=== PATIENT | female | born 1960 | race Caucasian/White ===

== ENCOUNTER 2021-06-09 11:54 | Emergency (ER) | payer MEDICAID, OTHER ==
[~2021-06-09] VITALS: Ht 160 cm; Wt 60.3 kg
[2021-06-09 13:43] LABS: Basophils # (auto) 0 10 ^3/uL (0-0.2); Basophils % (auto) 0.3 % (0.0-2.0); Eosinophils # (auto) 0.1 10 ^3/uL (0-0.8); Eosinophils % (auto) 0.8 % (0.0-7.0); Hematocrit 40.4 % (36.0-46.0); Hemoglobin 13.9 g/dL (12.2-16.2); Lymphocytes # (auto) 1.6 10 ^3/uL (0.4-5.4); Lymphocytes % (auto) 15.6 % (10.0-50.0); Mean Corpuscular Hemoglobin 30.9 pg (28.0-32.0); Mean Corpuscular Hgb Conc. 34.3 g/dL (32.0-36.0); Mean Corpuscular Volume 90.2 fL (80.0-100.0); Monocytes # (auto) 0.7 10 ^3/uL (0-1.3); Monocytes % (auto) 7.2 % (0.0-12.0); Neutrophils # (auto) 7.6 10 ^3/uL (1.6-8.6); Neutrophils % (auto) 76.1 % (37.0-80.0); Red Blood Cells 4.48 10^6/uL (4.0-5.20); Red Cell Distribution Width 13.7 % (11.8-14.3); White Blood Cell 9.9 10^3/uL (4.4-10.8)
[2021-06-09 13:55] LABS: Albumin 4.2 g/dL (3.4-5.0); BUN/Creatinine Ratio 17.1; Calcium 9.2 mg/dL (8.5-10.1)
[2021-06-09 13:58] LABS: Bilirubin, Total 0.4 mg/dL (0.2-1.0); Total Protein 7.9 g/dL (6.4-8.2)
[2021-06-09 15:49] LABS: Urine Bacteria NONE SEEN /hpf (None Seen); Urine Blood TRACE /uL (Negative); Urine Mucus FEW (None Seen); Urine Specific Gravity 1.024 (1.001-1.035); Urine WBC 14 /hpf (0 - 5)
[2021-06-09 16:00] VITALS: BP 128/75
== END 2021-06-09 17:07 | disposition home or self-care (01) ==
LOC: ER 11:54
DX: N39.0 Urinary tract infection, site not specified (principal); R05 Cough; E11.9 Type 2 diabetes mellitus without complications; Z88.0 Allergy status to penicillin; Z20.822 Contact with and (suspected) exposure to COVID-19
CPT/HCPCS: 36415; 71045; 80053; 81001; 85025; 87426

== ENCOUNTER 2021-11-02 09:07 | Emergency (ER) | payer MEDICAID ==
[~2021-11-02] VITALS: Ht 160 cm; Wt 57.6 kg
[2021-11-02 10:35] VITALS: BP 139/73
== END 2021-11-02 11:13 | disposition home or self-care (01) ==
LOC: ER 09:07
DX: J02.9 Acute pharyngitis, unspecified (principal); R05.9 Cough, unspecified; I10 Essential (primary) hypertension; E11.9 Type 2 diabetes mellitus without complications; Z20.822 Contact with and (suspected) exposure to COVID-19
CPT/HCPCS: 36415; 71046; 87426

== ENCOUNTER 2025-03-11 09:41 | Inpatient (IN) | payer OTHER, MEDICAID ==
[~2025-03-11] VITALS: Ht 160 cm; Wt 62.8 kg
--- NOTE | 2025-03-11 10:41 | DVHINCON2 ---
Date of service: Mar 11, 2025 Allergies: Coded Allergies: Penicillins (Verified Allergy, Unknown, 06/09/21) Vital Signs Vital Signs Date Time Temp Pulse Resp B/P (MAP) Pulse Ox O2 Delivery O2 Flow Rate FiO2 03/11/25 10:38 98.7 77 13 156/83 (107) 94 98.7 03/11/25 10:33 Room Air* 0 21 Labs/Diagnostic Data Labs Test 03/11/25 10:08 Range/Units POC Glucose 145 H 70-106 mg/dl Plan/Recommendation [facility] Note # Demographics Consult Type: Acute Stroke Level 1 (0-4.5 hrs) Patient Location: Emergency Room First Name: tito Last Name: reece Date of : 1960 Age: 64 Gender: Female Facility: [facility] Time of Initial Page (): 03/11/2025 10:20 Time of Return Call (): 03/11/2025 10:20 # HPI History: 64yo F had an episode of confusion while on [facility] phone. mild faciald oj noted on exam onset 1 hour ago # Scores Time of exam and NIHSS (): 03/11/2025 10:30 Level of Consciousness 1a: [0] = Alert; keenly responsive LOC Questions 1b: [0] = Answers both questions correctly LOC Commands 1c: [0] = Performs both tasks correctly Best Gaze 2: [0] = Normal Visual 3: [0] = No visual loss Facial Palsy 4: [0] = Normal symmetrical movements Motor Arm Left 5a: [0] = No drift Motor Arm Right 5b: [0] = No drift Motor Leg Left 6a: [0] = No drift Motor Leg Right 6b: [0] = No drift Limb Ataxia 7: [0] = Absent Sensory 8: [0] = Normal Best Language 9: [0] = No aphasia Dysarthria 10: [0] = Normal Extinction and Inattention 11: [0] = No abnormality NIHSS Total: 0 # Assessment Impression: confusion/amnestic episode # Plan Thrombolytic/Intervention: NOT IV Thrombolysis or IA Intervention candidate Thrombolytic Exclusion (< 3 hour window): - NIHSS = 0 - non-disabling deficit Intraarterial Exclusion: - clinical exam not consistent with presence of large vessel occlusion (LVO), can reconsider if LVO found on vascular imaging Imaging: (urgency: STAT): - CT Angiogram Head and CT Angiogram Neck AND call back with results if abnormal Other: - If patient has any neurological deterioration please call me back immediately - I have discussed my recommendations with the referring provider Additional Recommendations: Metabolic and infectious evaluation recommended. If no cause found then MRI brain and EEG would be reasonable for next step in evaluation # Logistics Attestation of consult completion: The patient is located at: [facility]. Facility staff participated in the visit. I performed this telemedicine visit from my offsite office utilizing interactive 2 way audio and visual telecommunication technology. Total time spent in telemedicine encounter: I spent 10 minutes reviewing clinical data and/or imaging, obtaining history, examining the patient, communicating with the onsite care team, and in preparation of this report. # Demographics First Name: tito Last Name: reece Facility: [facility] Plan discussed with: Patient JACOB LARIOS DO Mar 11, 2025 10:41
--- NOTE | 2025-03-11 10:45 | ECG ---
[facility] Test Date: 2025-03-11 Test Time: 10:36:42 Pat Name: MARTIN ROGERS Department: ER Room: 0209T Gender: F [employer]: GUERDA : 1960 Requested By: RADHA COVARRUBIAS Order Number: [id number] Reading MD: Evin Rivera Measurements Intervals [place] Rate: 66 P: 53 WI: 130 QRS: 28 QRSD: 102 T: 58 QT: 399 QTc: 418 Interpretive Statements Sinus rhythm Abnormal R-wave progression, early transition Electronically Signed On 03-13-2025 20:28:17 PDT by Evin Rivera Please click the below link to view image of tracing.
--- NOTE | 2025-03-11 10:47 | DVH ---
EXAM: CT STROKE CTH INDICATION: POSS STROKE TECHNIQUE: CT of the head without intravenous contrast. Radiation Dose : 1. Head: CT Dose: CTDI volume is 53.25 mGy. Dose-length product is 863.9 mGy*cm The dose indicators for CT are the volume Computed Tomography (CT) Dose Index (CTDIvol) and the Dose Length Product (DLP), and are measured in units of mGy and mGy-cm, respectively. These indicators are not patient dose, but values generated from the CT scanner acquisition factors. The report includes radiation exposure data for exposures received during this examination. COMPARISON: None FINDINGS: There is no evidence of acute intracranial hemorrhage, extra-axial collection, mass effect, midline s hift, herniation or hydrocephalus. The ventricles, sulci and cisterns are age appropriate. The riley-white differentiation is intact. The visualized paranasal sinuses and mastoid air cells are clear. The surrounding soft tissues and osseous structures are unremarkable. IMPRESSION: No acute intracranial abnormality. Radiation optimization: All CT scans at this facility use at least one of these dose optimization veda hniques: automated exposure control mA and/or kV adjustment per patient size (includes targeted exam s where dose is matched to clinical indication) or iterative reconstruction.
[2025-03-11 11:18] LABS: Basophils # (auto) 0 10 ^3/uL (0-0.2); Basophils % (auto) 0.6 % (0.0-2.0); Eosinophils # (auto) 0.2 10 ^3/uL (0-0.8); Hematocrit 42.4 % (36.0-46.0); Hemoglobin 14.6 g/dL (12.2-16.2); Lymphocytes # (auto) 1.9 10 ^3/uL (0.4-5.4); Lymphocytes % (auto) 22.6 % (10.0-50.0); Mean Corpuscular Hemoglobin 30.8 pg (28.0-32.0); Mean Corpuscular Hgb Conc. 34.3 g/dL (32.0-36.0); Mean Corpuscular Volume 89.7 fL (80.0-100.0); Monocytes # (auto) 0.6 10 ^3/uL (0-1.3); Monocytes % (auto) 6.8 % (0.0-12.0); Neutrophils # (auto) 5.7 10 ^3/uL (1.6-8.6); Platelet Count (auto) 249 10^3/uL (140-450); Red Blood Cells 4.73 10^6/uL (4.0-5.20); Red Cell Distribution Width 13.6 % (11.8-14.3); White Blood Cell 8.4 10^3/uL (4.4-10.8)
[2025-03-11 11:29] LABS: Chloride 105 mmol/L (98-107); Potassium 3.9 mmol/L (3.5-5.1); Sodium 139 mmol/L (136-145)
[2025-03-11 11:30] LABS: Anion Gap 10 (5-15); Carbon Dioxide 24 mmol/L (20-31)
[2025-03-11 11:33] LABS: Calcium 10.5 mg/dL (8.7-10.4)
[2025-03-11 11:37] LABS: Glucose 158 mg/dL (74-106)
--- NOTE | 2025-03-11 11:50 | ED.PDOC ---
HPI (NEURO) HPI Comments 64 year old female presents to the ED with chief complaint of confusion and facial droop. Patient reports that earlier this morning 30 minutes prior to arrival in the ED she had went into the backyard and into her son's RV, however, she soon after started to feel confused as to why she was there and forgot that her son had just called her at about 8:51am. Patient relays that she was confused that she didn't remember speaking to her son and she also had some mild left facial droop noted. Patient denies any chest pain, SOB, headache, numbness or weakness of extremities, and LOC. Chief Complaint: Confusion Time Seen by MD: 11:48 Primary Care Provider: LETTY Quinn Notes: Nurses Notes, Medications, Allergies Information Source: Patient Mode of Arrival: Ambulatory Severity: Moderate Headache Severity: None Timing: Hours Duration: Since onset Prehospital treatment: None Weakness Location: Facial Onset: At rest Circumstances: Spontaneous History of: None Associated Signs and Symptoms: Weakness, Other (Confusion) Past Medical History PAST MEDICAL HISTORY: DM, HTN Surgical History: Cholecystectomy Surgical History (Other): Rt shoulder surgery RENTAL MANAGER History: No Pertinent RENTAL MANAGER History Family History Family History: Reviewed,noncontributory to illness Social History Smoker: Non-Smoker Alcohol: Denies ETOH Use Drugs: Denies Drug Use Lives In: Home Constitutional: denies: chills, diaphoresis, fatigue, fever, malaise, sweats, weakness, others EENTM: denies: blurred vision, double vision, ear bleeding, ear discharge, ear drainage, ear pain, ear ringing, eye pain, eye redness, hearing loss, mouth pain , mouth swelling, nasal discharge, nose bleeding, nose congestion, nose pain, photophobia, tearing, throat pain, throat swelling, voice changes, others Respiratory: denies: cough, hemoptysis, orthopnea, SOB at rest, shortness of breath, SOB with excertion, stridor, wheezing, others Cardiovascular: reports: lightheadedness; denies: chest pain, dizzy spells, diaphoresis, Dyspnea on exertion, edema, irregular heart beat, left arm pain, palpitations, PND, syncope, others Gastrointestinal: denies: abdomen distended, abdominal pain, blood streaked bowels, constipated, diarrhea, dysphagia, difficulty swallowing, hematemesis, melena, nausea, poor appetite, poor fluid intake, rectal bleeding, rectal pain, vomiting, others Genitourinary: denies: abnormal vagina bleeding, burning, dyspareunia, dysuria, flank pain, frequency, hematuria, incontinence, pain, , vagina discharge, urgency, others Neurological: reports: others (Confusion, left facial droop); denies: dizziness, fainting, headache, left sided numbness, left sided weakness, numbness, paresthesia, pre-existing deficit, right sided numbness, right sided weakness, seizure, speech problems, tingling, tremors, weakness Musculoskeletal: denies: back pain, gout, joint pain, joint swelling, muscle pain, muscle stiffness, neck pain, others Integumetry: denies: bruises, change in color, change in hair/nails, dryness, laceration, lesions, lumps, rash, wounds, others Allergic/Immunocompromised: denies: Difficulty Healing, Frequent Infections, Hives, Itching, others Hematologic/Lymphatic: denies: anemia, blood clots, easy bleeding, easy bruising, swollen glands, others Endocrine: denies: excessive hunger, excessive sweating, excessive thirst, excessive urination, flushing, intolerance to cold, intolerance to heat, unexplained weight gain, unexplained weight loss, others Psychiatric: denies: anxiety, bipolar disorder, depression, hopeless, panic disorder, schizophrenia, sleepless, suicidal, others All Other Systems: Reviewed and Negative Physical Exam General Appearance: No Apparent Distress, Normal HEENT: Normal ENT Inspection, Pharynx Normal, TMs Normal Neck: Full Range of Motion, Non-Tender, Normal, Normal Inspection Respiratory: Chest Non-Tender, Lungs Clear, No Accessory Muscle Use, No Respiratory Distress, Normal Breath Sounds Cardiovascular: No Edema, No JVD, No Murmur, No Gallop, Normal Peripheral Pulses, Regular Rate/Rhythm Breast Exam: Deferred Gastrointestinal: No Organomegaly, Non Tender, No Pulsatile Mass, Normal Bowel Sounds, Soft Genitalia: Deferred Pelvic: Deferred Rectal: Deferred Extremities: No calf tenderness, Normal capillary refill, Normal inspection, Normal range of motion, Non-tender, No pedal edema Musculoskeletal : Apperance: Normal Neurologic: Other (Left sided facial droop. Appears slightly confused. 5/5 strength to bilateral upper and lower extremities. Steady gait.) Cerebellar Function: Normal Reflexes: Normal Skin: Dry, Normal Color, Warm Lymphatic: No Adenopathy Was a procedure done? Was a procedure done?: No Differential Diagnosis (SZ) CVA: Lu's Palsy, CVA, Electrolyte Imbalance, TIA X-Ray, Labs, Meds, VS Vital Signs Date Time Temp Pulse Resp B/P (MAP) Pulse Ox O2 Delivery O2 Flow Rate FiO2 03/11/25 12:10 69 03/11/25 10:38 98.7 77 13 156/83 (107) 94 98.7 03/11/25 10:36 66 03/11/25 10:33 Room Air* 0 21 03/11/25 10:18 97.0 70 17 178/97 (124) 97 97.0 Lab Test 03/11/25 11:51 03/11/25 10:56 03/11/25 10:08 Range/Units Urine Color Colorless Yellow Urine Clarity Clear Clear Urine pH 6.5 5.0-9.0 Urine Specific [place] 1.005 1.001-1.035 Urine Protein Negative Negative Urine Ketones Negative Negative Urine Blood Trace H Negative /uL Urine Nitrite Negative Negative Urine Bilirubin Negative Negative Urine Urobilinogen Normal Negative mg/dL Urine Leukocyte Esterase Negative Negative /uL Urine RBC 1 0 - 4 /hpf Urine Microscopic WBC < 1 0-5 /HPF Urine Squamous Epithelial Cells None seen <5 /hpf Urine Bacteria None seen None Seen /hpf Urine Glucose Normal Normal mg/dL Urine Opiates Screen Neg NEGATIVE Urine Fentanyl Screen Neg NEGATIVE Urine Barbiturates Screen Neg NEGATIVE Urine Phencyclidine Screen Neg NEGATIVE Urine Amphetamines Screen Neg NEGATIVE Urine Benzodiazepines Screen Neg NEGATIVE Urine Cocaine Screen Neg NEGATIVE Urine Cannabinoids Screen Neg NEGATIVE White Blood Count 8.4 4.4-10.8 10^3/uL Red Blood Count 4.73 4.0-5.20 10^6/uL Hemoglobin 14.6 12.2-16.2 g/dL Hematocrit 42.4 36.0-46.0 % Mean Corpuscular Volume 89.7 80.0-100.0 fL Mean Corpuscular Hemoglobin 30.8 28.0-32.0 pg Mean Corpuscular Hemoglobin Concent 34.3 32.0-36.0 g/dL Red Cell Distribution Width 13.6 11.8-14.3 % Platelet Count 249 140-450 10^3/uL Mean Platelet Volume 8.4 6.9-10.8 fL Neutrophils (%) (Auto) 68.0 37.0-80.0 % Lymphocytes (%) (Auto) 22.6 10.0-50.0 % Monocytes (%) (Auto) 6.8 0.0-12.0 % Eosinophils (%) (Auto) 2.0 0.0-7.0 % Basophils (%) (Auto) 0.6 0.0-2.0 % Neutrophils # (Auto) 5.7 1.6-8.6 10 ^3/uL Lymphocytes # (Auto) 1.9 0.4-5.4 10 ^3/uL Monocytes # (Auto) 0.6 0-1.3 10 ^3/uL Eosinophils # (Auto) 0.2 0-0.8 10 ^3/uL Basophils # (Auto) 0 0-0.2 10 ^3/uL Nucleated Red Blood Cells 0.0 % Sodium Level 139 136-145 mmol/L Potassium Level 3.9 3.5-5.1 mmol/L Chloride Level 105 98-107 mmol/L Carbon Dioxide Level 24 20-31 mmol/L Anion Gap 10 5-15 Blood Urea Nitrogen 24 H 9-23 mg/dL Creatinine 0.85 0.550-1.02 mg/dL Glomerular Filtration Rate Calc 76 >90 mL/min BUN/Creatinine Ratio 28.2 H 10.0-20.0 Serum Glucose 158 H 74-106 mg/dL Hemoglobin A1c 6.3 H <5.7 % A1C Calcium Level 10.5 H 8.7-10.4 mg/dL Troponin I High Sensitivity 81 *H </=34 ng/L Triglycerides Level 217 H < 150 mg/dL Cholesterol Level 181 < 200 mg/dL LDL Cholesterol 114 H < 100 mg/dL HDL Cholesterol 40 40-59 mg/dL Thyroid Stimulating Hormone (TSH) 1.74 0.55-4.78 uIU/mL POC Glucose 145 H 70-106 mg/dl CT Head CVA: FINDINGS: There is no evidence of acute intracranial hemorrhage, extra-axial collection, mass effect, midline shift, herniation or hydrocephalus. The ventricles, sulci and cisterns are age appropriate. The riley-white differentiation is intact. The visualized paranasal sinuses and mastoid air cells are clear. The surrounding soft tissues and osseous structures are unremarkable. IMPRESSION: No acute intracranial abnormality. Radiation optimization: All CT scans at this facility use at least one of these dose optimization techniques: automated exposure control mA and/or kV adjustment per patient size (includes targeted exams where dose is matched to clinical indication) or iterative reconstruction. 64-year-old female presents here for stroke-like symptoms. Patient states proximally 1 hour prior to arrival she was feeling okay and then had a conversation with her son which does not remember having. This was very unusual for the patient. Patient presented to the ED. She did have a left facial droop. No other symptoms noted and she did have some mild confusion. Given th is was within 3 hour time window a code stroke was alerted. I spoke to Dr. Royal the neurologist. At this time patient is not a candidate for tPA given her minor symptoms. I have given her aspirin in the ER. Blood work has been done including a CBC BMP troponin. All of which are largely unremarkable except for she does not have elevated troponin. EKG demonstrates nonspecific ST changes. Hospitalist team has been contacted for admission. Images Reviewed?: Images reviewed and evaluated by me Time of 1ST Reevaluation: 12:48 Reevaluation 1ST: Unchanged Patient Education/Counseling: Diagnosis, Treatment Family Education/Counseling: No Family Present Departure 1 Departure Time of Disposition: 13:30 Impression: Primary Impression: Stroke-like symptoms Additional Impression: NSTEMI (non-ST elevation myocardial infarction) Disposition: ADMITTED INPATIENT Condition: Stable Critical Care Note Critical Care Time?: Yes (60 min-critical care time only) Critical care comment: Time spent evaluating the patient. Nursing staff called me to evaluate the p atient immediately upon arrival to the ER. Time spent and speaking to neurologist, interpreting labs. Concern for immediate deterioration Stability Stability form required: No Heart Score Heart Score: Heart Score Response (Comments) Value History Slightly Suspicious 0 EKG Repolarization Disturb 1 Age >65 2 Risk Factors 1 or 2 risk factors 1 Troponin >3 x's Normal limit 2 Total 6 I personally scribed for RADHA COVARRUBIAS MD ([email or web address]) on 03/11/25 at 11:50. Electronically submitted by Alberto Adam ([email or web address]). I personally scribed for RADHA COVARRUBIAS MD ([email or web address]) on 03/11/25 at 11:56. Electronically submitted by Alberto Adam ([email or web address]). I personally scribed for RADAH COVARRUBIAS MD ([email or web address]) on 03/11/25 at 11:57. Electronically submitted by Alberto Adam ([email or web address]). I personally scribed for RADHA COVARRUBIAS MD ([email or web address]) on 03/11/25 at 13:40. Electronically submitted by Alberto Adam ([email or web address]). I personally scribed for RADHA COVARRUBIAS MD ([email or web address]) on 03/11/25 at 15:01. Electronically submitted by Alberto Adam ([email or web address]). RADHA COVARRUBIAS MD Mar 11, 2025 11:50
[2025-03-11 12:04] LABS: BUN/Creatinine Ratio 28.2 (10.0-20.0); Blood Urea Nitrogen 24 mg/dL (9-23)
[2025-03-11 12:17] LABS: Urine Bacteria None Seen /hpf (None Seen)
[2025-03-11 12:31] LABS: Urine Blood TRACE /uL (Negative); Urine Clarity Clear (Clear); Urine Color Colorless (Yellow); Urine Protein, UAD Negative (Negative); Urine Specific Gravity 1.005 (1.001-1.035); Urine Squamous Epithelial Cell None Seen /hpf (<5); Urine Urobilinogen Normal (Negative); Urine WBC < 1 /HPF (0-5); Urine pH 6.5 (5.0-9.0)
[2025-03-11] MEDS ORDERED: ONDANSETRON HCL 4 MG/2 ML VIAL IV PRN (12:45)
[2025-03-11] MEDS ORDERED: MORPHINE SULFATE 4 MG/ML SYR/VIAL IV PRN (12:45)
[2025-03-11] MEDS ORDERED: NITROGLYCERIN 0.4 MG SL TAB SL PRN ×2 (12:45)
[2025-03-11] MEDS ORDERED: MORPHINE SULFATE INJ 2 MG/ml SYRG IV PRN (12:45)
[2025-03-11] MEDS ORDERED: DEXTROSE (50%) 50ML SYRG IV PRN (12:45)
--- NOTE | 2025-03-11 12:51 | DVHHP2 ---
History of Present Illness Reason for Visit: Acute encephalopathy History of Present Illness Marilyn Mcmahan is a 64-year-old female with past medical history of hypertension, diabetes, cholecystectomy, and right shoulder surgery who presents to the ED with confusion, left facial droop, and chest pressure that started tod ay. Patient states that she was in the backyard changing out her dog's water bowl when her son and Cris and she reports that there was some confusion. Patient reports that she does not have hypertension however her readings have been significantly high. Patient states that her chest pressure feels as though it is heavy. She does not report any pain. Patient denies shortness of breath, fever, chills, lightheadedness, dizziness, abdominal pain with nausea, vomiting, diarrhea, recent travels, recent trauma or injury, recent sick contacts, or recent ingestion of spoiled food. Cardiovascular: HTN Endocrine: Diabetes Past Surgical History: Cholecystectomy, Other (Right shoulder surgery) Family History: Other (Dad with heart disease) Smoke: No ALCOHOL: none Drugs: None Lives: with Family Domestic Violence: Neg Review of Systems Constitutional: Yes: Other Cardiovascular: Other (Chest pressure) Neurological: Other (Left facial droop) Allergies: Coded Allergies: Penicillins (Verified Allergy, Unknown, 06/09/21) Exam Vital Signs Vital Signs Date Time Temp Pulse Resp B/P (MAP) Pulse Ox O2 Delivery O2 Flow Rate FiO2 03/11/25 10:38 98.7 77 13 156/83 (107) 94 98.7 03/11/25 10:33 Room Air* 0 21 General Appearance: Alert, Oriented X3, Cooperative, No acute distress HEENT: Atraumatic, PERRLA, EOMI, Mucous membr. moist/pink Respiratory: Clear to auscultation, Normal air movement Cardiovascular: Regular rate, Normal S1, Normal S2, No murmurs Abdominal: Normal bowel sounds, Soft, No tenderness, No hepatospenomegaly, No masses Extremities: No clubbing, No cyanosis, No edema, Normal pulses Skin: No significant lesion Neuro: Normal speech, Strength at 5/5 X4 ext, Normal tone, Sensation intact Psych/Mental Status: Mental status NL, Mood NL Labs/Xrays Labs Test 03/11/25 11:51 03/11/25 10:56 03/11/25 10:08 Range/Units Urine Color Colorless Yellow Urine Clarity Clear Clear Urine pH 6.5 5.0-9.0 Urine Specific [place] 1.005 1.001-1.035 Urine Protein Negative Negative Urine Ketones Negative Negative Urine Blood Trace H Negative /uL Urine Nitrite Negative Negative Urine Bilirubin Negative Negative Urine Urobilinogen Normal Negative mg/dL Urine Leukocyte Esterase Negative Negative /uL Urine RBC 1 0 - 4 /hpf Urine Microscopic WBC < 1 0-5 /HPF Urine Squamous Epithelial Cells None seen <5 /hpf Urine Bacteria None seen None Seen /hpf Urine Glucose Normal Normal mg/dL White Blood Count 8.4 4.4-10.8 10^3/uL Red Blood Count 4.73 4.0-5.20 10^6/uL Hemoglobin 14.6 12.2-16.2 g/dL Hematocrit 42.4 36.0-46.0 % Mean Corpuscular Volume 89.7 80.0-100.0 fL Mean Corpuscular Hemoglobin 30.8 28.0-32.0 pg Mean Corpuscular Hemoglobin Concent 34.3 32.0-36.0 g/dL Red Cell Distribution Width 13.6 11.8-14.3 % Platelet Count 249 140-450 10^3/uL Mean Platelet Volume 8.4 6.9-10.8 fL Neutrophils (%) (Auto) 68.0 37.0-80.0 % Lymphocytes (%) (Auto) 22.6 10.0-50.0 % Monocytes (%) (Auto) 6.8 0.0-12.0 % Eosinophils (%) (Auto) 2.0 0.0-7.0 % Basophils (%) (Auto) 0.6 0.0-2.0 % Neutrophils # (Auto) 5.7 1.6-8.6 10 ^3/uL Lymphocytes # (Auto) 1.9 0.4-5.4 10 ^3/uL Monocytes # (Auto) 0.6 0-1.3 10 ^3/uL Eosinophils # (Auto) 0.2 0-0.8 10 ^3/uL Basophils # (Auto) 0 0-0.2 10 ^3/uL Nucleated Red Blood Cells 0.0 % Sodium Level 139 136-145 mmol/L Potassium Level 3.9 3.5-5.1 mmol/L Chloride Level 105 98-107 mmol/L Carbon Dioxide Level 24 20-31 mmol/L Anion Gap 10 5-15 Blood Urea Nitrogen 24 H 9-23 mg/dL Creatinine 0.85 0.550-1.02 mg/dL Glomerular Filtration Rate Calc 76 >90 mL/min BUN/Creatinine Ratio 28.2 H 10.0-20.0 Serum Glucose 158 H 74-106 mg/dL Calcium Level 10.5 H 8.7-10.4 mg/dL Troponin I High Sensitivity 81 *H </=34 ng/L POC Glucose 145 H 70-106 mg/dl EXAM: CT STROKE CTH INDICATION: POSS STROKE TECHNIQUE: CT of the head without intravenous contrast. Radiation Dose : 1. Head: CT Dose: CTDI volume is 53.25 mGy. Dose-length product is 863.9 mGy*cm The dose indicators for CT are the volume Computed Tomography (CT) Dose Index (CTDIvol) and the Dose Length Product (DLP), and are measured in units of mGy and mGy-cm, respectively. These indicators are not patient dose, but values generated from the CT scanner acquisition factors. The report includes radiation exposure data for exposures received during this examination. COMPARISON: None FINDINGS: There is no evidence of acute intracranial hemorrhage, extra-axial collection, mass effect, midline shift, herniation or hydrocephalus. The ventricles, sulci and cisterns are age appropriate. The riley-white differentiation is intact. The visualized paranasal sinuses and mastoid air cells are clear. The surrounding soft tissues and osseous structures are unremarkable. IMPRESSION: No acute intracranial abnormality. Assessment/Plan Assessment/Plan Assessment NSTEMI Acute encephalopathy Hypertensive urgency Stroke ruled out History of hypertension History of Diabetes type 2 History of cholecystectomy History of right shoulder surgery Plan Admit to tele EKG Neuro checks Trend troponin's UA CT head noted Hemoglobin A1c ISS and Accu-Cheks Echo ordered UDS TSH Lipid panel Chest x-ray ordered Aspirin Statin Diet Per patient she does not take any medications at home DVT prophylaxis-not indicated patient ambulating PUD prophylaxis-not indicated no history of GERD or GI bleed Discussed plan of care with patient and nurse Cardiology consult Plan discussed with: Patient My Orders Orders - MAURICE HOLM Procedure Category Date Status Time Hemoglobin A1c LAB 03/11/25 In Process 12:37 Glucose Blood PHA 03/11/25 Logged (Accu-Chek Comfort 17:00 Insulin R (Human) PHA 03/11/25 Logged (Insulin R) 17:00 Dextrose 50% Syringe PHA 03/11/25 Logged 12:45 Thyroid Stimulating LAB 03/11/25 Logged Hormone 12:37 Echo 2d Mode Cardiac US 03/11/25 Logged DOP 12:37 Drug Screen LAB 03/11/25 In Process 12:37 Lipid Panel LAB 03/11/25 Logged 12:37 Admit ADMIT 03/11/25 Transmitted 12:37 Code Status CODE 03/11/25 Transmitted 12:37 Vital Signs HORACIO 03/11/25 In Process 12:37 Cardiac DIET 03/11/25 Transmitted Diet-2gna,Lofat,Lochol Lunch Aspirin Tablet PHA 03/12/25 Logged 10:00 Atorvastatin (Lipitor) PHA 03/11/25 Logged 22:00 Morphine Sulfate PHA 03/11/25 Logged Injection 12:45 Acetaminophen Tablet PHA 03/11/25 Logged (Tylenol Tablet) 12:45 Complete Blood Count LAB 03/12/25 Verified 04:00 Basic Metabolic Panel LAB 03/12/25 Verified 04:00 Magnesium LAB 03/12/25 Verified 04:00 Nitroglycerin PHA 03/11/25 Logged Sublingual (Ntrostat 12:45 Ondansetron Hcl PHA 03/11/25 Logged (Zofran) 12:45 Electrocardigram EKG 03/12/25 Logged 04:00 Troponin-I Hs LAB 03/11/25 Logged 12:37 Cardiac HORACIO 03/11/25 In Process Rehabilitation - Outpa Nitroglycerin PHA 03/11/25 Logged Sublingual (Ntrostat 12:45 Morphine Sulfate PHA 03/11/25 Logged Injection 12:45 Stat Ekg For Chest HORACIO 03/11/25 In Process Pain 12:37 Notify Md Of Changes HORACIO 03/11/25 In Process From Base 12:37 Chipper Machine Operator For HORACIO 03/11/25 In Process 24 Hours 12:37 Emergency Dysrhythmia HORACIO 03/11/25 In Process Protocol 12:37 Rhythm Strips Once HORACIO 03/11/25 In Process Every Shift 12:37 Oxygen By Nasal RT 03/11/25 Transmitted Cannula 12:37 Date of Service: Mar 11, 2025 Billing Provider: MAURICE HOLM Common Visit Codes: [id number] INP/OBS CARE (HIGH) MAURICE HOLM Mar 11, 2025 12:50
[2025-03-11] MEDS: ASPirin 81 mg TAB PO SCH (12:58)
[2025-03-11 13:18] LABS: Cholesterol 181 mg/dL (< 200); HDL Cholesterol 40 mg/dL (40-59)
[2025-03-11 13:30] LABS: LDL Cholesterol 114 mg/dL (< 100); Triglycerides 217 mg/dL (< 150)
[2025-03-11 13:30] LABS: Amphetamine Screen, Urine Neg (NEGATIVE); Barbiturate Scree,Urine Neg (NEGATIVE); Benzodiazephine Screen, Urine Neg (NEGATIVE); Cannabinoid Screen, Urine Neg (NEGATIVE); Cocaine Screen, Urine Neg (NEGATIVE); Opiate Scree,Urine Neg (NEGATIVE); Phencyclidine Screen, Urine Neg (NEGATIVE)
--- NOTE | 2025-03-11 14:12 | DVH ---
CHEST RADIOGRAPH Indication: cp Technique: Single frontal view of the chest was obtained Comparison: CHEST PORTABLE on DOS: 06/09/21 FINDINGS: Lines and Tubes: None Lungs: No focal consolidation. Pleura: No effusion. No pneumothorax. Cardiomediastinal contours: Unremarkable Bones: No acute osseous abnormality. IMPRESSION: 1. No acute cardiopulmonary disease. 2. No significant change from 11/02/2021. HS:Y
[2025-03-11 14:56] VITALS: BP 150/82; PULSE 80; RESP 18; TEMP 98.6
[2025-03-11 14:58] VITALS: BP 152/82; RESP 18; TEMP 98.4; O2SAT 98
[2025-03-11 17:00] VITALS: BP 159/83; PULSE 78; RESP 16; TEMP 98.4; O2SAT 96
--- NOTE | 2025-03-11 17:07 | DVHINCON2 ---
Date Seen: Mar 11, 2025 Referring Physician GONZALEZ Russell Reason for Consultation Elevated troponin History of Present Illness This is a 64-year-old female patient who presents to the emergency room with chief complaint of confusion. The patient reports that she was at home getting ready for work and received a call from her son. After the call, she states that she began to feel confused as to if her son actually called and spoke with her or not. She states that she checked her phone records and saw a call between her and her son was made. On her way to work, she felt as though her brain was "foggy", and felt as though she would not be able to make it to work. She reports calling her niece who advised her to come to the emergency room. The patient then drove herself to the emergent nearest emergency room for further evaluation. Cardiology has been consulted at this time for elevated troponin levels. Initial twelve lead electrocardiogram reveals normal sinus rhythm without any significant ST segment changes. Initial troponin level of 81ng/L with significant up trend and current peak level at 737ng/L. The patient denies any cardiac symptoms. Significant past medical history includes glaucoma, type 2 diabetes mellitus, and hepatitis-C. It was worth noting that the patient came in with blood pressure readings as high as 170/97. The patient denies any previous history of hypertension. ER documentation also mentions that the patient presented with left-sided facial drooping. At time of assessment, no facial drooping noticed. Past Medical History Past medical history reviewed. No other significant than mentioned above. Past Surgical History Cholecystectomy Right shoulder rotator cuff repair Family History: Alzheimer's disease G8 SISTER Glaucoma G8 SISTER Hypertension G8 FATHER G8 SISTER Family History Family history reviewed. Social History Denies the use of tobacco, alcohol or illicit drugs. Allergies: Coded Allergies: Penicillins (Verified Allergy, Unknown, 06/09/21) Home Meds Home medications reviewed. Current Medications Current Medications Medications (Trade) Dose Ordered Sig/Lubna Route PRN Reason Start Time Stop Time Status Last Admin Diagnostic Test (Pha) (Accu-Chek Comfort Curve T) 1 strip ACHS 03/11/25 17:00 Insulin Human Regular (InsuLIN R) ACHS SC 03/11/25 17:00 Dextrose 50 ml UD PRN IV Blood Sugar LESS THAN 60 03/11/25 12:45 Aspirin 81 mg DAILY PO 03/11/25 12:48 03/11/25 12:58 Atorvastatin Calcium (Lipitor) 40 mg HS PO 03/11/25 22:00 Morphine Sulfate 2 mg Q30MP PRN IV FOR CHEST PAIN 03/11/25 12:45 03/11/25 12:49 DC Acetaminophen (Tylenol Tablet) 650 mg Q6HP PRN PO MILD PAIN (1-3 PAIN SCALE) 03/11/25 12:45 Nitroglycerin (Ntrostat Sublingual) 0.4 mg Q5MINP PRN SL FOR CHEST PAIN 03/11/25 12:45 03/11/25 12:49 DC Ondansetron HCl (Zofran) 4 mg Q4HP PRN IV NAUSEA / VOMITING 03/11/25 12:45 Nitroglycerin (Ntrostat Sublingual) 0.4 mg Q5MINP PRN SL FOR CHEST PAIN 03/11/25 12:45 Morphine Sulfate 2 mg Q30M PRN IV FOR CHEST PAIN 03/11/25 12:45 Review of Systems Constitutional: No symptom reported Ears, Nose, & Throat: No symptom reported Eyes: No symptom reported Neurological: Confusion Pulmonary/Respiratory: No symptoms reported Cardiovascular: No symptom reported Gastrointestinal: No symptom reported Genitourinary: No symptom reported Musculoskeletal: No symptom reported Skin: No symptom reported Psychiatric: No symptom reported Endocrine: No symptom reported Hematologic/Lymphatic: No symptom reported Vital Signs Vital Signs Date Time Temp Pulse Resp B/P (MAP) Pulse Ox O2 Delivery O2 Flow Rate FiO2 03/11/25 14:58 98.4 18 152/82 (105) 98 98.4 03/11/25 14:56 80 Room Air* 0 21 Physical Exam General Appearance: Cooperative. Well-developed. Well-nourished. No acute distress. Pulmonary/Respiratory: Clear, bilateral breaths sounds. Cardiovascular/Chest: Regular rate and rhythm. Peripheral Pulses: 2+ Radial (R). 2+ Radial (L). 2+ Pedal (R). 2+ Pedal (L) Abdominal Exam: Normal bowel sounds. Ankle Exam: Negative ankle edema Lower extremities: Negative lower extremity edema Neuro/Mental Status: A/OX4, coherent. Thoughts/Psych: Normal thought pattern. Appropriate mood and affect. Good judgment and insight. Appearance: No acute distress. Skin Exam: Normal inspection. Normal color. Warm and dry. Labs/Diagnostic Data Labs Test 03/11/25 15:00 4/25/25 11:51 03/11/25 10:56 03/11/25 10:08 Range/Units Troponin I High Sensitivity 737 *H </=34 ng/L Urine Color Colorless Yellow Urine Clarity Clear Clear Urine pH 6.5 5.0-9.0 Urine Specific [place] 1.005 1.001-1.035 Urine Protein Negative Negative Urine Ketones Negative Negative Urine Blood Trace H Negative /uL Urine Nitrite Negative Negative Urine Bilirubin Negative Negative Urine Urobilinogen Normal Negative mg/dL Urine Leukocyte Esterase Negative Negative /uL Urine RBC 1 0 - 4 /hpf Urine Microscopic WBC < 1 0-5 /HPF Urine Squamous Epithelial Cells None seen <5 /hpf Urine Bacteria None seen None Seen /hpf Urine Glucose Normal Normal mg/dL Urine Opiates Screen Neg NEGATIVE Urine Fentanyl Screen Neg NEGATIVE Urine Barbiturates Screen Neg NEGATIVE Urine Phencyclidine Screen Neg NEGATIVE Urine Amphetamines Screen Neg NEGATIVE Urine Benzodiazepines Screen Neg NEGATIVE Urine Cocaine Screen Neg NEGATIVE Urine Cannabinoids Screen Neg NEGATIVE White Blood Count 8.4 4.4-10.8 10^3/uL Red Blood Count 4.73 4.0-5.20 10^6/uL Hemoglobin 14.6 12.2-16.2 g/dL Hematocrit 42.4 36.0-46.0 % Mean Corpuscular Volume 89.7 80.0-100.0 fL Mean Corpuscular Hemoglobin 30.8 28.0-32.0 pg Mean Corpuscular Hemoglobin Concent 34.3 32.0-36.0 g/dL Red Cell Distribution Width 13.6 11.8-14.3 % Platelet Count 249 140-450 10^3/uL Mean Platelet Volume 8.4 6.9-10.8 fL Neutrophils (%) (Auto) 68.0 37.0-80.0 % Lymphocytes (%) (Auto) 22.6 10.0-50.0 % Monocytes (%) (Auto) 6.8 0.0-12.0 % Eosinophils (%) (Auto) 2.0 0.0-7.0 % Basophils (%) (Auto) 0.6 0.0-2.0 % Neutrophils # (Auto) 5.7 1.6-8.6 10 ^3/uL Lymphocytes # (Auto) 1.9 0.4-5.4 10 ^3/uL Monocytes # (Auto) 0.6 0-1.3 10 ^3/uL Eosinophils # (Auto) 0.2 0-0.8 10 ^3/uL Basophils # (Auto) 0 0-0.2 10 ^3/uL Nucleated Red Blood Cells 0.0 % Sodium Level 139 136-145 mmol/L Potassium Level 3.9 3.5-5.1 mmol/L Chloride Level 105 98-107 mmol/L Carbon Dioxide Level 24 20-31 mmol/L Anion Gap 10 5-15 Blood Urea Nitrogen 24 H 9-23 mg/dL Creatinine 0.85 0.550-1.02 mg/dL Glomerular Filtration Rate Calc 76 >90 mL/min BUN/Creatinine Ratio 28.2 H 10.0-20.0 Serum Glucose 158 H 74-106 mg/dL Hemoglobin A1c 6.3 H <5.7 % A1C Calcium Level 10.5 H 8.7-10.4 mg/dL Triglycerides Level 217 H < 150 mg/dL Cholesterol Level 181 < 200 mg/dL LDL Cholesterol 114 H < 100 mg/dL HDL Cholesterol 40 40-59 mg/dL Thyroid Stimulating Hormone (TSH) 1.74 0.55-4.78 uIU/mL POC Glucose 145 H 70-106 mg/dl Assessment NSTEMI Hypertensive emergency, newly diagnosed Rule out structural heart disease Dyslipidemia, newly diagnosed Rule out CVA Prediabetes Plan/Recommendation We will continue with the following plan/recommendations (Dr. Sprague): Patient seen and examined at bedside with . A transthoracic echocardiogram reveals EF of 65% with normal valves and no noted wall motion abnormalities. Continue with blood pressure control. Head CT negative for any acute intracranial abnormalities. Recommend further workup such as brain MRI to rule out CVA. The patient with elevated troponin level denies any kind of cardiac symptoms including chest pain, palpitations, shortness of breath, etc.. Continue with lipid-lowering agent. Continue with close cardiac surveillance and notify cardiology team immediately for any ECG changes or new onset chest pain. Thank you for allowing us to care for this patient. Please call with any questions or concerns. Critical care time spent: 44 minutes This medical document was created using an electronic medical record system with voice recognition software and computerized dictation system. Although this document has been carefully reviewed, there might still be some phonetic and typographical errors. Occasional wrong-word or ``sound-alike substitutions may have occurred due to the inherent limitations of voice recognition software. These areas are purely typographical due to imperfections of the software programs and do not reflect any compromise in the patient's medical care. Please read the chart carefully and recognize, using context, where these substitutions have occurred. Plan discussed with: Patient NYHA Physical activity limitations: NA Date of Service: Mar 11, 2025 Billing Provider: RICARDO CORBIN Cardiology Common Codes: [id number] INP/OBS CARE (High) Cardiology Consultation Codes: [id number] CONSULT <45MIN RICARDO CORBIN Mar 11, 2025 17:07
[2025-03-11] MEDS: InsuLIN REG 1unit/0.01ml Soln (100units/ml) SC SCH (17:17)
[2025-03-11] MEDS: ACCU-CHEK COMFORT CURVE STRIP VI SCH (17:18)
[2025-03-11 20:00] VITALS: PULSE 78; PULSE 87; RESP 18; O2SAT 96
[2025-03-11 21:00] VITALS: BP 118/70; PULSE 78; RESP 16; TEMP 98.7; O2SAT 96
--- NOTE | 2025-03-11 21:26 | DVHSR ---
APPROVED REPORT EXAM: Two-dimensional and M-mode echocardiogram with Doppler and color Doppler. Blood Pressure: 156/83 mmHg INDICATION Chest Pain RISK FACTORS Height: 5'3", Weight: 138 DIMENSIONS LVDd4.3 (3.8-5.7cm)LA (2D)3.6 (1.9-4.0cm)Aortic Root2.7 (2.0-3.7cm) LVDs2.8 (2.5-4.0cm)LA (MM) (1.9-4.0cm)Aortic Cusp Exc1.7 (1.5-2.0cm) EF (%) 64.0 (55-70%)Rt. Atrium (1.9-4.0cm)Asc. Aorta2.9 cm IVSd0.8 (0.7-1.1cm)RV (D) (1.8-2.4cm) PWd0.7 (0.7-1.1cm) Mitral Valve MitralMitral Stenosis E wave0.74m/sMV Mean GR.mmHg A wave0.63m/sMV Peak GR.mmHg E/A ratio1.22D MVAcm2 DECEL [id number] 1/2 Timems Aortic Valve Aortic ValveAortic Stenosis V11.07m/[place] Mean GR.3mmHg V21.16m/[place] Peak GR.5mmHg LVOT Diameter2.0 (1.8-2.4cm)Doppler AVA2.90cm2 Pulmonic Valve V20.80m/s Tricuspid Valve TR Velocity2.51m/s [id number] Conclusion LV EF IS 65% NORMAL VALVES NO EFFUSION NORMAL RV FUNCTION.SIZE AND PRESSURE
[2025-03-11] MEDS: ATORVASTATIN 20 MG TAB PO SCH (21:39)
--- NOTE | 2025-03-11 22:08 | DVHINCON2 ---
Date Seen: Mar 11, 2025 Referring Physician GONZALEZ Russell Reason for Consultation Elevated troponin History of Present Illness This is a 64-year-old female with past medical history includes glaucoma, type 2 diabetes mellitus, and hepatitis-C who presents to the emergency room with a complaint of confusion. The patient reports that she was at home getting ready for work and received a call from her son. After the call, she states that she began to feel confused as to if her son actually called and spoke with her or not. She states that she checked her phone records and saw a call between her and her son was made. On her way to work, she felt as though her brain was "foggy", and felt as though she would not be able to make it to work. She reports calling her niece who advised her to come to the emergency room. The patient then drove herself to the emergent nearest emergency room for further evaluation. Cardiology has been consulted at this time for elevated troponin levels. Initial twelve lead electrocardiogram reveals normal sinus rhythm without any significant ST segment changes. Initial troponin level of 81ng/L with significant up trend and current peak level at 737ng/L. CT head showed no acute intracranial abnormality. Chest x-ray showed NAD. The patient denies any cardiac symptoms. It was worth noting that the patient came in with blood pressure readings as high as 170/97. The patient denies any previous history of hypertension. ER documentation also mentions that the patient presented with left-sided facial drooping. At time of assessment, no facial drooping noticed. Past Medical History Past medical history reviewed. No other significant than mentioned above. Past Surgical History Cholecystectomy Right shoulder rotator cuff repair Family History: Alzheimer's disease G8 SISTER Glaucoma G8 SISTER Hypertension G8 FATHER G8 SISTER Allergies: Coded Allergies: Penicillins (Verified Allergy, Unknown, 06/09/21) Current Medications Current Medications Medications (Trade) Dose Ordered Sig/Lubna Route PRN Reason Start Time Stop Time Status Last Admin Diagnostic Test (Pha) (Accu-Chek Comfort Curve T) 1 strip ACHS 03/11/25 17:00 03/11/25 21:40 Insulin Human Regular (InsuLIN R) ACHS SC 03/11/25 17:00 03/11/25 17:17 Dextrose 50 ml UD PRN IV Blood Sugar LESS THAN 60 03/11/25 12:45 Aspirin 81 mg DAILY PO 03/11/25 12:48 03/11/25 12:58 Atorvastatin Calcium (Lipitor) 40 mg HS PO 03/11/25 22:00 03/11/25 21:39 Morphine Sulfate 2 mg Q30MP PRN IV FOR CHEST PAIN 03/11/25 12:45 03/11/25 12:49 DC Acetaminophen (Tylenol Tablet) 650 mg Q6HP PRN PO MILD PAIN (1-3 PAIN SCALE) 03/11/25 12:45 Nitroglycerin (Ntrostat Sublingual) 0.4 mg Q5MINP PRN SL FOR CHEST PAIN 03/11/25 12:45 03/11/25 12:49 DC Ondansetron HCl (Zofran) 4 mg Q4HP PRN IV NAUSEA / VOMITING 03/11/25 12:45 Nitroglycerin (Ntrostat Sublingual) 0.4 mg Q5MINP PRN SL FOR CHEST PAIN 03/11/25 12:45 Morphine Sulfate 2 mg Q30M PRN IV FOR CHEST PAIN 03/11/25 12:45 Hydrochlorothiazide (hydroCHLOROthiazide TABLET) 25 mg DAILY PO 03/12/25 10:00 Review of Systems Constitutional: No symptom reported Ears, Nose, & Throat: No symptom reported Eyes: No symptom reported Neurological: Confusion Pulmonary/Respiratory: No symptoms reported Cardiovascular: No symptom reported Gastrointestinal: No symptom reported Genitourinary: No symptom reported Musculoskeletal: No symptom reported Skin: No symptom reported Psychiatric: No symptom reported Endocrine: No symptom reported Hematologic/Lymphatic: No symptom reported Vital Signs Vital Signs Date Time Temp Pulse Resp B/P (MAP) Pulse Ox O2 Delivery O2 Flow Rate FiO2 03/11/25 21:00 98.7 78 16 118/70 (86) 96 98.7 03/11/25 20:00 Room Air* 0 21 Physical Exam GENERAL: Alert and oriented x 3. No acute distress. EYES: PERRL, EOMI. Anicteric. HENT: Moist mucous membranes. LUNGS: Clear to auscultation bilaterally. CARDIOVASCULAR: Regular rate and rhythm. ABDOMEN: Soft, nontender and nondistended. EXTREMITIES: No edema. NEUROLOGIC: No focal neurological deficits. SKIN: Warm, dry. Labs/Diagnostic Data Labs Test 03/11/25 19:51 03/11/25 19:45 03/11/25 11:51 03/11/25 10:56 Range/Units Troponin I High Sensitivity 843 *H </=34 ng/L POC Glucose 105 70-106 mg/dl Urine Color Colorless Yellow Urine Clarity Clear Clear Urine pH 6.5 5.0-9.0 Urine Specific [place] 1.005 1.001-1.035 Urine Protein Negative Negative Urine Ketones Negative Negative Urine Blood Trace H Negative /uL Urine Nitrite Negative Negative Urine Bilirubin Negative Negative Urine Urobilinogen Normal Negative mg/dL Urine Leukocyte Esterase Negative Negative /uL Urine RBC 1 0 - 4 /hpf Urine Microscopic WBC < 1 0-5 /HPF Urine Squamous Epithelial Cells None seen <5 /hpf Urine Bacteria None seen None Seen /hpf Urine Glucose Normal Normal mg/dL Urine Opiates Screen Neg NEGATIVE Urine Fentanyl Screen Neg NEGATIVE Urine Barbiturates Screen Neg NEGATIVE Urine Phencyclidine Screen Neg NEGATIVE Urine Amphetamines Screen Neg NEGATIVE Urine Benzodiazepines Screen Neg NEGATIVE Urine Cocaine Screen Neg NEGATIVE Urine Cannabinoids Screen Neg NEGATIVE White Blood Count 8.4 4.4-10.8 10^3/uL Red Blood Count 4.73 4.0-5.20 10^6/uL Hemoglobin 14.6 12.2-16.2 g/dL Hematocrit 42.4 36.0-46.0 % Mean Corpuscular Volume 89.7 80.0-100.0 fL Mean Corpuscular Hemoglobin 30.8 28.0-32.0 pg Mean Corpuscular Hemoglobin Concent 34.3 32.0-36.0 g/dL Red Cell Distribution Width 13.6 11.8-14.3 % Platelet Count 249 140-450 10^3/uL Mean Platelet Volume 8.4 6.9-10.8 fL Neutrophils (%) (Auto) 68.0 37.0-80.0 % Lymphocytes (%) (Auto) 22.6 10.0-50.0 % Monocytes (%) (Auto) 6.8 0.0-12.0 % Eosinophils (%) (Auto) 2.0 0.0-7.0 % Basophils (%) (Auto) 0.6 0.0-2.0 % Neutrophils # (Auto) 5.7 1.6-8.6 10 ^3/uL Lymphocytes # (Auto) 1.9 0.4-5.4 10 ^3/uL Monocytes # (Auto) 0.6 0-1.3 10 ^3/uL Eosinophils # (Auto) 0.2 0-0.8 10 ^3/uL Basophils # (Auto) 0 0-0.2 10 ^3/uL Nucleated Red Blood Cells 0.0 % Sodium Level 139 136-145 mmol/L Potassium Level 3.9 3.5-5.1 mmol/L Chloride Level 105 98-107 mmol/L Carbon Dioxide Level 24 20-31 mmol/L Anion Gap 10 5-15 Blood Urea Nitrogen 24 H 9-23 mg/dL Creatinine 0.85 0.550-1.02 mg/dL Glomerular Filtration Rate Calc 76 >90 mL/min BUN/Creatinine Ratio 28.2 H 10.0-20.0 Serum Glucose 158 H 74-106 mg/dL Hemoglobin A1c 6.3 H <5.7 % A1C Calcium Level 10.5 H 8.7-10.4 mg/dL Triglycerides Level 217 H < 150 mg/dL Cholesterol Level 181 < 200 mg/dL LDL Cholesterol 114 H < 100 mg/dL HDL Cholesterol 40 40-59 mg/dL Thyroid Stimulating Hormone (TSH) 1.74 0.55-4.78 uIU/mL Assessment NSTEMI. Hypertensive emergency, newly diagnosed. Rule out structural heart disease. Dyslipidemia, newly diagnosed. Rule out CVA. Prediabetes. Plan/Recommendation I agree with your ongoing assessment and care of plan. Patient has been seen by Cindy Khalil NP on my behalf, her and I discussed the plan with the patient. A transthoracic echocardiogram reveals EF of 65% with normal valves and no noted wall motion abnormalities. Continue with blood pressure control. Head CT negative for any acute intracranial abnormalities. Recommend further workup such as brain MRI to rule out CVA. The patient with elevated troponin level denies any kind of cardiac symptoms including chest pain, palpitations, shortness of breath, etc. Continue with lipid-lowering agent. Continue with close cardiac surveillance and notify cardiology team immediately for any ECG changes or new onset chest pain. Additional plan as per the hospital course. Plan discussed with: Patient NYHA Physical activity limitations: NA Date of Service: Mar 11, 2025 Billing Provider: JOSHUA CHOWDARY MD Cardiology Common Codes: [id number] INP/OBS CARE (High) Cardiology Consultation Codes: [id number] CONSULT <45MIN JOSHUA CHWODARY MD Mar 11, 2025 22:01
[2025-03-12] VITALS (8 sets, daily range): BP systolic 97–114; BP diastolic 61–68; PULSE 62–84; RESP 16–18; TEMP 97.8–99.2; O2SAT 93–96
[2025-03-12 05:23] LABS: Basophils # (auto) 0 10 ^3/uL (0-0.2); Basophils % (auto) 0.4 % (0.0-2.0); Eosinophils # (auto) 0.3 10 ^3/uL (0-0.8); Eosinophils % (auto) 2.9 % (0.0-7.0); Hematocrit 42.9 % (36.0-46.0); Hemoglobin 14.5 g/dL (12.2-16.2); Lymphocytes # (auto) 2.7 10 ^3/uL (0.4-5.4); Lymphocytes % (auto) 29.8 % (10.0-50.0); Mean Corpuscular Hemoglobin 30.9 pg (28.0-32.0); Mean Corpuscular Hgb Conc. 33.8 g/dL (32.0-36.0); Mean Corpuscular Volume 91.4 fL (80.0-100.0); Monocytes # (auto) 0.8 10 ^3/uL (0-1.3); Monocytes % (auto) 9.2 % (0.0-12.0); Neutrophils # (auto) 5.1 10 ^3/uL (1.6-8.6); Neutrophils % (auto) 57.7 % (37.0-80.0); Nucleated Red Blood Cells % 0.1 %; Platelet Count (auto) 241 10^3/uL (140-450); Red Blood Cells 4.69 10^6/uL (4.0-5.20); Red Cell Distribution Width 13.5 % (11.8-14.3); White Blood Cell 8.9 10^3/uL (4.4-10.8)
[2025-03-12 05:34] LABS: Potassium 4.2 mmol/L (3.5-5.1); Sodium 138 mmol/L (136-145)
[2025-03-12 05:35] LABS: Anion Gap 7 (5-15); Carbon Dioxide 23 mmol/L (20-31)
[2025-03-12 05:36] LABS: Calcium 9.8 mg/dL (8.7-10.4)
[2025-03-12 05:40] LABS: Chloride 108 mmol/L (98-107)
[2025-03-12 05:41] LABS: BUN/Creatinine Ratio 23.4 (10.0-20.0); Blood Urea Nitrogen 22 mg/dL (9-23); Magnesium 2.2 mg/dL (1.6-2.6)
[2025-03-12 05:55] LABS: Glucose 120 mg/dL (74-106)
[2025-03-12] MEDS: hydroCHLOROthiazide 25 MG TAB PO SCH (09:52)
[2025-03-12] MEDS: ACETAMINOPHEN 325 MG TAB PO PRN (11:29)
--- NOTE | 2025-03-12 13:07 | DVHPN2 ---
Reviewed: Care Plan, H&P, Labs, Medications, Previous Orders, Radiology Changes from previous H/P or p: No Changes Cardiovascular: Other (Chest pressure) Objective Vitals Vital Signs Date Time Temp Pulse Resp B/P (MAP) Pulse Ox O2 Delivery O2 Flow Rate FiO2 03/12/25 09:52 115/65 03/12/25 09:00 98.9 70 18 94 98.9 03/12/25 08:00 Room Air* 0 21 Intake/Output Intake and Output 03/12/25 07:00 Intake Total 1600 ml Balance 1600 ml Intake Oral 1600 ml # Voids 6 # Bowel Movements 1 Medications Current Medications Medications Dose Ordered Sig/Lubna Route Start Time Stop Time Status Last Admin Dose Admin Diagnostic Test (Pha) 1 strip ACHS 03/11/25 17:00 03/12/25 11:33 1 STRIP Insulin Human Regular ACHS SC 03/11/25 17:00 03/12/25 11:33 3 UNITS Dextrose 50 ml UD PRN IV 03/11/25 12:45 Aspirin 81 mg DAILY PO 03/11/25 12:48 03/12/25 09:51 81 MG Atorvastatin Calcium 40 mg HS PO 03/11/25 22:00 03/11/25 21:39 40 MG Acetaminophen 650 mg Q6HP PRN PO 03/11/25 12:45 03/12/25 11:29 650 MG Ondansetron HCl 4 mg Q4HP PRN IV 03/11/25 12:45 Nitroglycerin 0.4 mg Q5MINP PRN SL 03/11/25 12:45 Morphine Sulfate 2 mg Q30M PRN IV 03/11/25 12:45 Hydrochlorothiazide 25 mg DAILY PO 03/12/25 10:00 03/12/25 09:52 25 MG Laboratory Results Laboratory Tests 03/12/25 05:06 Chemistry Test 03/12/25 05:06 Calcium Level 9.8 mg/dL (8.7-10.4) Magnesium Level 2.2 mg/dL (1.6-2.6) Urinalysis Test 03/11/25 11:51 Urine Color Colorless (Yellow) Urine Clarity Clear (Clear) Urine pH 6.5 (5.0-9.0) Urine Specific [place] 1.005 (1.001-1.035) Urine Protein Negative (Negative) Urine Ketones Negative (Negative) Urine Blood Trace /uL (Negative) H Urine Nitrite Negative (Negative) Urine Bilirubin Negative (Negative) Urine Urobilinogen Normal mg/dL (Negative) Urine Leukocyte Esterase Negative /uL (Negative) Urine RBC 1 /hpf (0 - 4) Urine Microscopic WBC < 1 /HPF (0-5) Urine Squamous Epithelial Cells None seen /hpf (<5) Urine Bacteria None seen /hpf (None Seen) Urine Glucose Normal mg/dL (Normal) Labs and/or images reviewed: Labs reviewed by me, Image(s) reviewed by me Assessment/Plan Assessment/Plan NSTEMI Hypertensive emergency, newly diagnosed: Hydrochlorothiazide, cardiology consult by Dr. Sprague appreciated Rule out structural heart disease echo 65 percent ejection fraction Dyslipidemia, newly diagnosed: Lipitor Rule out CVA: CT head negative, consult for Neurology Dr. Milian Prediabetes DIEGO Hurd at bedside during exam Plan discussed with: Patient Date of Service: Mar 12, 2025 Billing Provider: CATRINA OLIVERA MD Common Visit Codes: [id number] INP/OBS CARE(HIGH) CATRINA OLIVERA MD Mar 12, 2025 13:07
--- NOTE | 2025-03-12 14:01 | DVH ---
CAROTID DOPPLER ULTRASOUND HISTORY: Rule out stroke COMPARISON: None TECHNIQUE: Real time riley scale, color Doppler, and spectral duplex images are obtained through the c arotid and vertebral arteries. Findings: Peak systolic velocity right internal carotid artery is 77 cm/s and right common carotid ar rikki is 100 cm/s. Ratio is 0.8. Antegrade flow noted in right vertebral artery. No significant athero sclerotic plaque noted within the right carotid arterial system. Peak systolic velocity left internal carotid artery is 105 cm/s and left common carotid artery is 67 cm/s. Ratio is 1.6. Antegrade flow noted in left vertebral artery. No significant atherosclerotic marcus que noted within the left carotid arterial system. Impression: 1. No evidence of hemodynamically significant stenosis within the bilateral carotid arterial systems. 2. Antegrade flow within bilateral vertebral arteries.
--- NOTE | 2025-03-12 19:37 | DVH ---
PROCEDURE: MRI BRAIN HEAD WO CONTRAST INDICATION: Ruled out stroke EXAM DATE: 03/12/2025 04:48 PM COMPARISON: CT head 03/11/2025 TECHNIQUE: MRI of the brain without intravenous contrast. FINDINGS: Diffusion weighted images of the brain demonstrate no evidence of acute infarction. There is no evidence of acute intracranial hemorrhage, extra-axial collection, mass effect, midline s hift, herniation or hydrocephalus. The ventricles, sulci and cisterns appear age appropriate. Minimal periventricular and subcortical T2/FLAIR hyperintense foci are nonspecific but commonly due t o chronic microvascular ischemia. There are no signal abnormalities on the susceptibility weighted sequences. The major vascular flow voids are present. The visualized paranasal sinuses and mastoid air cells are clear. A few subcentimeter intraparotid l ymph nodes are noted. IMPRESSION: No evidence of acute intracranial abnormalities.
--- NOTE | 2025-03-12 20:55 | DVHPN2 ---
Progress Note - Dictate Date Seen: Mar 12, 2025 Medical Necessity Reason Pt with a Central, PICC or Fol: No Subjective Patient was seen and evaluated in follow up. Patient is complaining of chest pressure. MRI brain showed no acute intracranial abnormality. Telemetry reviewed. vital signs Vital Sign Date Time Temp Pulse Resp B/P (MAP) Pulse Ox O2 Delivery O2 Flow Rate FiO2 03/12/25 17:00 99.2 68 18 109/66 (80) 94 99.2 03/12/25 08:00 Room Air* 0 21 Total Intake and Output 03/11/25 03/11/25 03/12/25 15:00 23:00 07:00 Intake Total 800 ml 800 ml Balance 800 ml 800 ml medications Current Medications Medications Dose Ordered Sig/Lubna Route Start Time Stop Time Status Last Admin Dose Admin Diagnostic Test (Pha) 1 strip ACHS 03/11/25 17:00 03/12/25 17:26 1 STRIP Insulin Human Regular ACHS SC 03/11/25 17:00 03/12/25 11:33 3 UNITS Dextrose 50 ml UD PRN IV 03/11/25 12:45 Aspirin 81 mg DAILY PO 03/11/25 12:48 03/12/25 09:51 81 MG Atorvastatin Calcium 40 mg HS PO 03/11/25 22:00 03/11/25 21:39 40 MG Acetaminophen 650 mg Q6HP PRN PO 03/11/25 12:45 03/12/25 11:29 650 MG Ondansetron HCl 4 mg Q4HP PRN IV 03/11/25 12:45 Nitroglycerin 0.4 mg Q5MINP PRN SL 03/11/25 12:45 Morphine Sulfate 2 mg Q30M PRN IV 03/11/25 12:45 Hydrochlorothiazide 25 mg DAILY PO 03/12/25 10:00 03/12/25 09:52 25 MG objective GENERAL: Alert and oriented x 3. No acute distress. EYES: PERRL, EOMI. Anicteric. HENT: Moist mucous membranes. LUNGS: Clear to auscultation bilaterally. CARDIOVASCULAR: Regular rate and rhythm. ABDOMEN: Soft, nontender and nondistended. EXTREMITIES: No edema. NEUROLOGIC: No focal neurological deficits. SKIN: Warm, dry. laboratory and microbiology Laboratory Tests 03/12/25 05:06 Test 03/12/25 05:06 Range/Units Serum Glucose 120 H 74-106 mg/dL Problem List NSTEMI. Hypertensive emergency, newly diagnosed. Rule out structural heart disease. Dyslipidemia, newly diagnosed. Rule out CVA. Prediabetes. Assessment/Plan Continued all current supportive medical care. Aspirin, Lipitor. Morphine and [place] for pain management. Nitro SL. Additional plan as per the hospital course. Plan discussed with: Patient JOSUHA CHOWDARY MD Mar 12, 2025 20:17
[2025-03-13] VITALS (8 sets, daily range): BP systolic 101–118; BP diastolic 60–80; PULSE 65–89; RESP 14–20; TEMP 97.6–98.5; O2SAT 93–96
[2025-03-13] MEDS ORDERED: DORZ2SOL18 EACHEYE (06:38)
[2025-03-13] MEDS ORDERED: NETA1DRO OP (06:38)
--- NOTE | 2025-03-13 08:44 | DVHPN2 ---
Reviewed: Care Plan, H&P, Labs, Medications, Previous Orders, Radiology Changes from previous H/P or p: No Changes Cardiovascular: Other (Chest pressure) Objective Vitals Vital Signs Date Time Temp Pulse Resp B/P (MAP) Pulse Ox O2 Delivery O2 Flow Rate FiO2 03/13/25 08:25 118/68 03/13/25 08:03 97.9 66 20 94 97.9 03/12/25 20:00 Room Air* 0 21 Intake/Output Intake and Output 03/13/25 07:00 Intake Total 1635 ml Output Total 650 ml Balance 985 ml Intake Oral 1635 ml Output Urine Total 650 ml # Voids 6 # Bowel Movements 2 Medications Current Medications Medications Dose Ordered Sig/Lubna Route Start Time Stop Time Status Last Admin Dose Admin Diagnostic Test (Pha) 1 strip ACHS 03/11/25 17:00 03/13/25 06:29 1 STRIP Insulin Human Regular ACHS SC 03/11/25 17:00 03/13/25 06:32 2 UNITS Dextrose 50 ml UD PRN IV 03/11/25 12:45 Aspirin 81 mg DAILY PO 03/11/25 12:48 03/13/25 08:26 81 MG Atorvastatin Calcium 40 mg HS PO 03/11/25 22:00 03/12/25 21:45 40 MG Acetaminophen 650 mg Q6HP PRN PO 03/11/25 12:45 03/12/25 11:29 650 MG Ondansetron HCl 4 mg Q4HP PRN IV 03/11/25 12:45 Nitroglycerin 0.4 mg Q5MINP PRN SL 03/11/25 12:45 Morphine Sulfate 2 mg Q30M PRN IV 03/11/25 12:45 Hydrochlorothiazide 25 mg DAILY PO 03/12/25 10:00 03/13/25 08:25 25 MG Laboratory Results Laboratory Tests 03/12/25 05:06 Urinalysis Test 03/11/25 11:51 Urine Color Colorless (Yellow) Urine Clarity Clear (Clear) Urine pH 6.5 (5.0-9.0) Urine Specific [place] 1.005 (1.001-1.035) Urine Protein Negative (Negative) Urine Ketones Negative (Negative) Urine Blood Trace /uL (Negative) H Urine Nitrite Negative (Negative) Urine Bilirubin Negative (Negative) Urine Urobilinogen Normal mg/dL (Negative) Urine Leukocyte Esterase Negative /uL (Negative) Urine RBC 1 /hpf (0 - 4) Urine Microscopic WBC < 1 /HPF (0-5) Urine Squamous Epithelial Cells None seen /hpf (<5) Urine Bacteria None seen /hpf (None Seen) Urine Glucose Normal mg/dL (Normal) Labs and/or images reviewed: Labs reviewed by me, Image(s) reviewed by me Assessment/Plan Assessment/Plan NSTEMI Hypertensive emergency, newly diagnosed: Hydrochlorothiazide, cardiology consult by Dr. Sprague appreciated Rule out structural heart disease echo 65 % ejection fraction Dyslipidemia, newly diagnosed: Lipitor Rule out CVA: CT head negative, MRI brain negative, carotid ultrasound negative echo 65 % ejection consult for Neurology Dr. Milian Prediabetes RN Vannessa at bedside during exam Son Bill [phone] at bedside and concerned about elevated troponins, and feels nothing is being done, Texted Dr. pSrague for possible stress test Time spent discussing with the family 20 minutes Plan discussed with: Patient My Orders Orders - CATRINA OLIVERA MD Procedure Category Date Status Time * Neurology Consult CONS 03/12/25 Transmitted 12:56 Carotid Duplx W Color US 03/12/25 Resulted DOP 13:08 Brain Head Wo Contrast MRI 03/12/25 Resulted 13:08 Date of Service: Mar 13, 2025 Billing Provider: CATRINA OLIVERA MD Common Visit Codes: [id number] INP/OBS CARE(HIGH) Secondary Visit Codes: [id number] CARE PLAN 30 MINUTES CATRINA OLIVERA MD Mar 13, 2025 08:44
--- NOTE | 2025-03-13 23:31 | DVHPN2 ---
Progress Note - Dictate Date Seen: Mar 13, 2025 Medical Necessity Reason Pt with a Central, PICC or Fol: No Subjective Patient was seen and evaluated in follow up. Patient is complaining of chest pressure. BS are in the 100's. Echocardiogram shows an EF of 65%. Telemetry reviewed. vital signs Vital Sign Date Time Temp Pulse Resp B/P (MAP) Pulse Ox O2 Delivery O2 Flow Rate FiO2 03/13/25 13:00 98.5 89 18 117/80 (92) 93 98.5 03/13/25 08:00 Room Air* 0 21 Total Intake and Output 03/12/25 03/12/25 03/13/25 15:00 23:00 07:00 Intake Total 860 ml 775 ml Output Total 650 ml Balance 210 ml 775 ml medications Current Medications Medications Dose Ordered Sig/Lubna Route Start Time Stop Time Status Last Admin Dose Admin Diagnostic Test (Pha) 1 strip ACHS 03/11/25 17:00 03/13/25 11:53 1 STRIP Insulin Human Regular ACHS SC 03/11/25 17:00 03/13/25 06:32 2 UNITS Dextrose 50 ml UD PRN IV 03/11/25 12:45 Aspirin 81 mg DAILY PO 03/11/25 12:48 03/13/25 08:26 81 MG Atorvastatin Calcium 40 mg HS PO 03/11/25 22:00 03/12/25 21:45 40 MG Acetaminophen 650 mg Q6HP PRN PO 03/11/25 12:45 03/12/25 11:29 650 MG Ondansetron HCl 4 mg Q4HP PRN IV 03/11/25 12:45 Nitroglycerin 0.4 mg Q5MINP PRN SL 03/11/25 12:45 Morphine Sulfate 2 mg Q30M PRN IV 03/11/25 12:45 Hydrochlorothiazide 25 mg DAILY PO 03/12/25 10:00 03/13/25 08:25 25 MG objective GENERAL: Alert and oriented x 3. No acute distress. EYES: PERRL, EOMI. Anicteric. HENT: Moist mucous membranes. LUNGS: Clear to auscultation bilaterally. CARDIOVASCULAR: Regular rate and rhythm. ABDOMEN: Soft, nontender and nondistended. EXTREMITIES: No edema. NEUROLOGIC: No focal neurological deficits. SKIN: Warm, dry. laboratory and microbiology Laboratory Tests 03/12/25 05:06 Test 03/12/25 05:06 Range/Units Serum Glucose 120 H 74-106 mg/dL Problem List NSTEMI. Hypertensive emergency, newly diagnosed. Rule out structural heart disease. Dyslipidemia, newly diagnosed. Rule out CVA. Prediabetes. Assessment/Plan Continued all current supportive medical care. Aspirin, Lipitor. Morphine and [place] for pain management. Nitro SL. Additional plan as per the hospital course. Plan discussed with: Patient JOSHUA CHOWDARY MD Mar 13, 2025 15:55
[2025-03-14] VITALS (8 sets, daily range): BP systolic 108–129; BP diastolic 66–79; PULSE 64–95; RESP 14–18; TEMP 97.4–98.2; O2SAT 92–100
--- NOTE | 2025-03-14 08:27 | DVHPN2 ---
Reviewed: Care Plan, H&P, Labs, Medications, Previous Orders, Radiology Changes from previous H/P or p: No Changes Cardiovascular: Other (Chest pressure) Objective Vitals Vital Signs Date Time Temp Pulse Resp B/P (MAP) Pulse Ox O2 Delivery O2 Flow Rate FiO2 03/14/25 05:00 98.2 69 14 109/73 (85) 100 98.2 03/13/25 20:00 Room Air* 0 21 Intake/Output Intake and Output 03/14/25 07:00 Intake Total 970 ml Balance 970 ml Intake Oral 970 ml # Voids 5 # Bowel Movements 3 Medications Current Medications Medications Dose Ordered Sig/Lubna Route Start Time Stop Time Status Last Admin Dose Admin Diagnostic Test (Pha) 1 strip ACHS 03/11/25 17:00 03/14/25 06:52 1 STRIP Insulin Human Regular ACHS SC 03/11/25 17:00 03/14/25 07:00 2 UNITS Dextrose 50 ml UD PRN IV 03/11/25 12:45 Aspirin 81 mg DAILY PO 03/11/25 12:48 03/13/25 08:26 81 MG Atorvastatin Calcium 40 mg HS PO 03/11/25 22:00 03/13/25 22:18 40 MG Acetaminophen 650 mg Q6HP PRN PO 03/11/25 12:45 03/12/25 11:29 650 MG Ondansetron HCl 4 mg Q4HP PRN IV 03/11/25 12:45 Nitroglycerin 0.4 mg Q5MINP PRN SL 03/11/25 12:45 Morphine Sulfate 2 mg Q30M PRN IV 03/11/25 12:45 Hydrochlorothiazide 25 mg DAILY PO 03/12/25 10:00 03/13/25 08:25 25 MG Laboratory Results Laboratory Tests 03/12/25 05:06 Urinalysis Test 03/11/25 11:51 Urine Color Colorless (Yellow) Urine Clarity Clear (Clear) Urine pH 6.5 (5.0-9.0) Urine Specific [place] 1.005 (1.001-1.035) Urine Protein Negative (Negative) Urine Ketones Negative (Negative) Urine Blood Trace /uL (Negative) H Urine Nitrite Negative (Negative) Urine Bilirubin Negative (Negative) Urine Urobilinogen Normal mg/dL (Negative) Urine Leukocyte Esterase Negative /uL (Negative) Urine RBC 1 /hpf (0 - 4) Urine Microscopic WBC < 1 /HPF (0-5) Urine Squamous Epithelial Cells None seen /hpf (<5) Urine Bacteria None seen /hpf (None Seen) Urine Glucose Normal mg/dL (Normal) Labs and/or images reviewed: Labs reviewed by me, Image(s) reviewed by me Assessment/Plan Assessment/Plan NSTEMI Hypertensive emergency, newly diagnosed: Hydrochlorothiazide, cardiology consult by Dr. Sprague appreciated Rule out structural heart disease echo 65 % ejection fraction Dyslipidemia, newly diagnosed: Lipitor Rule out CVA: CT head negative, MRI brain negative, carotid ultrasound negative echo 65 % ejection consult for Neurology Dr. Milian Prediabetes Patient getting Cardiolite stress test today Plan discussed with: Patient Date of Service: Mar 14, 2025 Billing Provider: CATRINA OLIVERA MD Common Visit Codes: [id number] INP/OBS CARE(HIGH) CATRINA OLIVERA MD Mar 14, 2025 08:27
[2025-03-14] MEDS: REGADENOSON 0.4 MG/5 ML SYRG IV ONE ×2 (09:11)
--- NOTE | 2025-03-14 23:33 | DVHINCON2 ---
Date of service: Mar 14, [address] Singh Reason for Consultation Rule out stroke History of Present Illness Ms. Mcmahan is a 64 years old right-handed female with a history of diabetes, but otherwise healthy, she came to the [facility] on 03/11/2025 with a chief complaint of altered mental status/confusion. At this time, she waialert and fully oriented, she provided the following history Around 8:15AM on 03/11/2025, she went to the back yard claimed the dog bowl, he remember his phone going off, and she was talking to her son, but was not quite sure if it was her son on the phone talking to her, she did not remember the phone conversation. Later she found herself in her RV confused, and she drove herself to the [facility] for medical attention. After he arrived the hospital, she was look at her phone and realized that her son called her at 8:51 a.m.. She was never had similar problem before, she denies a history of stroke, seizure disorder, she denies symptoms of Dj vu, confusion spells, she was no history of traumatic brain injury, intracranial infection, or family history of seizure disorder. Urinalysis, 03/11/2025: Unremarkable UDS, 04/10/2025: Negative CBC, 03/12/2025: Unremarkable BMP 03/12/25: Unremarkable HGB A1c, 03/11/2025: 6.3 Troponin one high sensitivity, 03/11/2025: 81, 410, 737, 883, 898, 143 TG/HDL/LDL/HDL, 03/11/2025: 217/181/114/40 TSH, 03/11/2025: 1.74 Carotid Doppler, 03/12/2025: 1. No evidence of hemodynamically significant stenosis within the bilateral carotid arterial systems. 2. Antegrade flow within bilateral vertebral arteries CT head, 03/11/2025: No acute intracranial abnormality. MRI head, 03/12/2025: No evidence of acute intracranial abnormalities. Past Medical History Hypertension, diabetes Past Surgical History Cholecystectomy, right shoulder surgery Family History: Alzheimer's disease G8 SISTER Glaucoma G8 SISTER Hypertension G8 FATHER G8 SISTER Family History Diabetes, one sister had brain hemorrhage and dementia following the brain hemorrhage Social History She was not a tobacco smoker, she denies a history of alcohol or recreational substance abuse Allergies: Coded Allergies: Penicillins (Verified Allergy, Unknown, 06/09/21) Home Meds Reported Medications Dorzolamide-Timolol (Dorzolamide Hcl/Timolol M) 1 Ml [place], 1 DROP EACHEYE BID, #10 ML 6 Refills 03/13/25 Netarsudil Dimesylate-Latanopr (Rocklatan 0.02-0.005 %) 1 Dale Dale, 1 DALE OP HS, DALE 03/13/25 Review of Systems As above, the other systems are negative Vital Signs Vital Signs Date Time Temp Pulse Resp B/P (MAP) Pulse Ox O2 Delivery O2 Flow Rate FiO2 03/14/25 20:48 97.4 86 14 108/71 (83) 93 97.4 03/14/25 08:00 Room Air* 0 21 Physical Exam GENERAL EXAM: General: the patient is well developed and nourished. No acute distress. HEENT: Normocephalic, neck is supple, no carotid bruits. No mass. RESPIRATORY: Normal respiratory effort with symmetrical lung expansion. Lungs clear to auscultation. CARDIOVASCULAR: Regular rate and rhythm with no murmurs. S1, S2. ABDOMEN: Soft, nontender, normal bowel sound NEUROLOGICAL: MENTAL STATUS: Awake and alert. Oriented to person, place, time and general circumstances. Able to give personal history. SPEECH, LANGUAGE, HIGHER CORTICAL FUNCTION: no aphasia or dysathria. CRANIAL NERVES: #2: Intact visual cote to confrontation. The optic discs were sharp. #3,4,6: Pupils are equal, round and reactive. EOMs full and conjugate.No nystagmus. #5: Facial sensation intact in all three divisions bilaterally. Mandibular strength intact. #7: Facial muscles symmetrical and strength intact. #8: Hearing grossly normal to voice. #9,10: Uvula and soft palate rise in the midline. Swallow and voice are normal. #11: Trapezius and sternomastoid strength intact bilaterally. #12: Tongue midline. No fasciculations or atrophy. SENSATION: Sensation to touch and pinprick is normal. MOTOR: Normal tone in the upper and lower extremity. Normal muscle bulk. No fasciculations. No abnormal movements or posturing. Muscle strength of the major groups in the upper extremities is 5/5. Muscle strength of the major groups in the lower extremities is 5/5. REFLEXES: Deep tendon reflexes are symmetrical. No pathological reflexes. CEREBELLAR/COORDINATION: Finger to nose and heel to [place]kin are normal bilaterally. GAIT/STATION: deferred. Labs/Diagnostic Data Labs Test 03/14/25 22:29 03/13/25 12:01 03/12/25 05:06 03/11/25 11:51 Range/Units POC Glucose 168 H 70-106 mg/dl Troponin I High Sensitivity 32 </=34 ng/L White Blood Count 8.9 4.4-10.8 10^3/uL Red Blood Count 4.69 4.0-5.20 10^6/uL Hemoglobin 14.5 12.2-16.2 g/dL Hematocrit 42.9 36.0-46.0 % Mean Corpuscular Volume 91.4 80.0-100.0 fL Mean Corpuscular Hemoglobin 30.9 28.0-32.0 pg Mean Corpuscular Hemoglobin Concent 33.8 32.0-36.0 g/dL Red Cell Distribution Width 13.5 11.8-14.3 % Platelet Count 241 140-450 10^3/uL Mean Platelet Volume 8.3 6.9-10.8 fL Neutrophils (%) (Auto) 57.7 37.0-80.0 % Lymphocytes (%) (Auto) 29.8 10.0-50.0 % Monocytes (%) (Auto) 9.2 0.0-12.0 % Eosinophils (%) (Auto) 2.9 0.0-7.0 % Basophils (%) (Auto) 0.4 0.0-2.0 % Neutrophils # (Auto) 5.1 1.6-8.6 10 ^3/uL Lymphocytes # (Auto) 2.7 0.4-5.4 10 ^3/uL Monocytes # (Auto) 0.8 0-1.3 10 ^3/uL Eosinophils # (Auto) 0.3 0-0.8 10 ^3/uL Basophils # (Auto) 0 0-0.2 10 ^3/uL Nucleated Red Blood Cells 0.1 % Sodium Level 138 136-145 mmol/L Potassium Level 4.2 3.5-5.1 mmol/L Chloride Level 108 H 98-107 mmol/L Carbon Dioxide Level 23 20-31 mmol/L Anion Gap 7 5-15 Blood Urea Nitrogen 22 9-23 mg/dL Creatinine 0.94 0.550-1.02 mg/dL Glomerular Filtration Rate Calc 67 >90 mL/min BUN/Creatinine Ratio 23.4 H 10.0-20.0 Serum Glucose 120 H 74-106 mg/dL Calcium Level 9.8 8.7-10.4 mg/dL Magnesium Level 2.2 1.6-2.6 mg/dL Urine Color Colorless Yellow Urine Clarity Clear Clear Urine pH 6.5 5.0-9.0 Urine Specific [place] 1.005 1.001-1.035 Urine Protein Negative Negative Urine Ketones Negative Negative Urine Blood Trace H Negative /uL Urine Nitrite Negative Negative Urine Bilirubin Negative Negative Urine Urobilinogen Normal Negative mg/dL Urine Leukocyte Esterase Negative Negative /uL Urine RBC 1 0 - 4 /hpf Urine Microscopic WBC < 1 0-5 /HPF Urine Squamous Epithelial Cells None seen <5 /hpf Urine Bacteria None seen None Seen /hpf Urine Glucose Normal Normal mg/dL Urine Opiates Screen Neg NEGATIVE Urine Fentanyl Screen Neg NEGATIVE Urine Barbiturates Screen Neg NEGATIVE Urine Phencyclidine Screen Neg NEGATIVE Urine Amphetamines Screen Neg NEGATIVE Urine Benzodiazepines Screen Neg NEGATIVE Urine Cocaine Screen Neg NEGATIVE Urine Cannabinoids Screen Neg NEGATIVE Test 03/11/25 10:56 Range/Units Hemoglobin A1c 6.3 H <5.7 % A1C Triglycerides Level 217 H < 150 mg/dL Cholesterol Level 181 < 200 mg/dL LDL Cholesterol 114 H < 100 mg/dL HDL Cholesterol 40 40-59 mg/dL Thyroid Stimulating Hormone (TSH) 1.74 0.55-4.78 uIU/mL Assessment Altered mental status/confusion Transient global amnesia Partial complex seizure, less likely TIA/stroke, less likely Metabolic encephalopathy, less likely Heart attack Plan/Recommendation Monitoring Supportive treatment Telemetry EEG MR brain scan Aspirin 81 mg daily Lipitor 40 mg daily Cardiology on case More recommendation on clinical course Prognosis: Poor This medical document was created using an electronic medical record system with [employer] dictation system. Although this document has been carefully reviewed, there may still be some phonetic and typographical errors. These areas are purely typographical due to imperfections of the software programs, and do not reflect any compromise in the patient's medical care. Plan discussed with: Patient, Other BRENDA LARES MD Mar 14, 2025 23:33
--- NOTE | 2025-03-14 23:34 | DVHPN2 ---
Progress Note - Dictate Date Seen: Mar 14, 2025 Medical Necessity Reason Pt with a Central, PICC or Fol: No Subjective Patient was seen and evaluated in follow up. No overnight events. Patient is still c/o chest pains. Carotid Doppler shows no evidence of hemodynamically significant stenosis within the bilateral carotid arterial systems. Antegrade flow within bilateral vertebral arteries. Patient is undergoing stress test. Telemetry reviewed. vital signs Vital Sign Date Time Temp Pulse Resp B/P (MAP) Pulse Ox O2 Delivery O2 Flow Rate FiO2 03/14/25 20:48 97.4 86 14 108/71 (83) 93 97.4 03/14/25 08:00 Room Air* 0 21 Total Intake and Output 03/13/25 03/13/25 03/14/25 15:00 23:00 07:00 Intake Total 720 ml 250 ml Balance 720 ml 250 ml medications Current Medications Medications Dose Ordered Sig/Lubna Route Start Time Stop Time Status Last Admin Dose Admin Diagnostic Test (Pha) 1 strip ACHS 03/11/25 17:00 03/14/25 22:42 1 STRIP Insulin Human Regular ACHS SC 03/11/25 17:00 03/14/25 22:45 3 UNITS Dextrose 50 ml UD PRN IV 03/11/25 12:45 Aspirin 81 mg DAILY PO 03/11/25 12:48 03/13/25 08:26 81 MG Atorvastatin Calcium 40 mg HS PO 03/11/25 22:00 03/13/25 22:18 40 MG Acetaminophen 650 mg Q6HP PRN PO 03/11/25 12:45 03/12/25 11:29 650 MG Ondansetron HCl 4 mg Q4HP PRN IV 03/11/25 12:45 Nitroglycerin 0.4 mg Q5MINP PRN SL 03/11/25 12:45 Morphine Sulfate 2 mg Q30M PRN IV 03/11/25 12:45 Hydrochlorothiazide 25 mg DAILY PO 03/12/25 10:00 03/13/25 08:25 25 MG objective GENERAL: Alert and oriented x 3. No acute distress. EYES: PERRL, EOMI. Anicteric. HENT: Moist mucous membranes. LUNGS: Clear to auscultation bilaterally. CARDIOVASCULAR: Regular rate and rhythm. ABDOMEN: Soft, nontender and nondistended. EXTREMITIES: No edema. NEUROLOGIC: No focal neurological deficits. SKIN: Warm, dry. laboratory and microbiology Laboratory Tests 03/12/25 05:06 Test 03/12/25 05:06 Range/Units Serum Glucose 120 H 74-106 mg/dL Problem List NSTEMI. Hypertensive emergency, newly diagnosed. Rule out structural heart disease. Dyslipidemia, newly diagnosed. Rule out CVA. Prediabetes. Assessment/Plan Continued all current supportive medical care. Aspirin, Lipitor. Morphine and [place] for pain management. Nitro SL. Additional plan as per the hospital course. Plan discussed with: Patient JOSHUA CHOWDARY MD Mar 14, 2025 23:33
[2025-03-15] VITALS (8 sets, daily range): BP systolic 108–129; BP diastolic 63–73; PULSE 64–79; RESP 14–19; TEMP 97.8–98.3; O2SAT 93–99
[2025-03-15] MEDS ORDERED: MELATONIN 5 MG TAB PO ONE (03:15)
--- NOTE | 2025-03-15 08:05 | DVHPN2 ---
Reviewed: Care Plan, H&P, Labs, Medications, Previous Orders, Radiology Changes from previous H/P or p: No Changes Cardiovascular: Other (Chest pressure) Objective Vitals Vital Signs Date Time Temp Pulse Resp B/P (MAP) Pulse Ox O2 Delivery O2 Flow Rate FiO2 03/15/25 05:00 98.1 66 14 121/73 (89) 97 98.1 03/14/25 20:00 Room Air* 0 21 Intake/Output Intake and Output 03/15/25 06:59 Intake Total 1740 ml Balance 1740 ml Intake Oral 1740 ml # Voids 12 # Bowel Movements 4 Medications Current Medications Medications Dose Ordered Sig/Lub[place] Route Start Time Stop Time Status Last Admin Dose Admin Diagnostic Test (Pha) 1 strip ACHS 03/11/25 17:00 03/15/25 06:34 1 STRIP Insulin Human Regular ACHS SC 03/11/25 17:00 03/15/25 06:44 2 UNITS Dextrose 50 ml UD PRN IV 03/11/25 12:45 Aspirin 81 mg DAILY PO 03/11/25 12:48 03/13/25 08:26 81 MG Atorvastatin Calcium 40 mg HS PO 03/11/25 22:00 03/13/25 22:18 40 MG Acetaminophen 650 mg Q6HP PRN PO 03/11/25 12:45 03/12/25 11:29 650 MG Ondansetron HCl 4 mg Q4HP PRN IV 03/11/25 12:45 Nitroglycerin 0.4 mg Q5MINP PRN SL 03/11/25 12:45 Morphine Sulfate 2 mg Q30M PRN IV 03/11/25 12:45 Hydrochlorothiazide 25 mg DAILY PO 03/12/25 10:00 03/13/25 08:25 25 MG Laboratory Results Laboratory Tests 03/12/25 05:06 Urinalysis Test 03/11/25 11:51 Urine Color Colorless (Yellow) Urine Clarity Clear (Clear) Urine pH 6.5 (5.0-9.0) Urine Specific [place] 1.005 (1.001-1.035) Urine Protein Negative (Negative) Urine Ketones Negative (Negative) Urine Blood Trace /uL (Negative) H Urine Nitrite Negative (Negative) Urine Bilirubin Negative (Negative) Urine Urobilinogen Normal mg/dL (Negative) Urine Leukocyte Esterase Negative /uL (Negative) Urine RBC 1 /hpf (0 - 4) Urine Microscopic WBC < 1 /HPF (0-5) Urine Squamous Epithelial Cells None seen /hpf (<5) Urine Bacteria None seen /hpf (None Seen) Urine Glucose Normal mg/dL (Normal) Labs and/or images reviewed: Labs reviewed by me, Image(s) reviewed by me Assessment/Plan Assessment/Plan NSTEMI with troponin of 900 Hypertensive emergency, newly diagnosed: Hydrochlorothiazide, cardiology consult by Dr. Sprague appreciated Rule out structural heart disease echo 65 % ejection fraction Dyslipidemia, newly diagnosed: Lipitor Rule out CVA: CT head negative, MRI brain negative, carotid ultrasound negative echo 65 % ejection consult for Neurology Dr. Milian appreciated, EEG pending Transient global amnesia per Dr Milian Prediabetes High Level of anxiety: Xanax 1 mg PO TID scheduled Cardiolite stress test result pending EEG pending Plan discussed with: Patient Date of Service: Mar 15, 2025 Billing Provider: CATRINA OLIVERA MD Common Visit Codes: [id number] INP/OBS CARE(HIGH) CATRINA OLIVERA MD Mar 15, 2025 08:05
--- NOTE | 2025-03-15 08:06 | DVHSR ---
APPROVED REPORT Exam: Nuclear Stress Test Indication: R/O STROKE Stress Tech: Macey Chowdary Ht: 5 ft 3 in Wt: 138 lbs BSA: 1.65 m2 BMI: 24.44 Medical History Medical History: Diabetes,DLD, GLAUCOMA, HEP C, HTN, EF 65% Allergies: PCN Stress Test Details Stress Test: Pharmacologic stress testing performed using 0.4 mg of regadenoson per 5 mL given IV ov er 10 seconds. Reason for pharmacologic stress test: R/O STROKE. HR Resting HR: 78 bpmMax Heart Rate (APMHR): 154.609647 bpm Max HR Achieved: 115 bpmTarget HR (85% APMHR): 130.889878 bpm % of APMHR: 74.68 Recovery HR: 82 bpm BP Resting BP: 140/89 mmHg Recovery BP: 124/72 mmHg ECG Resting ECG: Sinus Rhythm Clinical Reason for Termination: Completed protocol Nurse Comments Received patient from Nuclear Medicine. Patient is A&O x4 and on RA. FOR VS please refer back to st ress test assessment documentation. Patient is connected to barber apprentice. See cardio-neuro proce dural notes for addtional details. PIV flushes well. Reviewed POC and patient verbalizes understand ing and consents to test. Lexiscan stress test performed per protocol. optometric technologist administered the Cardiolite. Pat ient tolerated well and vitals returned to baseline. Transferred to Nuclear Medicine via wheelchair with tech in stable condition. Stress ECG Conclusion lvef 71% iniferior wall ischemia noted abnormal study NM EXAM: Myocardial Perfusion REST/STRESS Imaging Protocol: Rest Tc-99m/Stress Tc-99m 1 day Resting Data Rest SPECT myocardial perfusion imaging was performed in supine position 60 minutes following the int ravenous injection of 10.5 mCi of Tc-99m Sestamibi. Time of rest injection: 0800 Time of rest imagin Administration Route: IV Administration Site: Right Arm Pharmacologic Stress Pharmacologic stress test was performed by injecting Regadenoson 0.4 mg IV push followed by the intra venous injection of 30.5 mCi of Tc-99m Sestamibi. Time of stress injection: 0930 Time of stress imagin Administration Route: IV Administration Site: Right Arm Gated Stress SPECT was performed 45 minutes after stress injection. The images were gated to evaluate regional wall motion and calculate left ventricular ejection fracti on. Nuclear Conclusion Nuclear Findings: positive for ischemia lvef 71% iniferior wall ischemia noted abnormal study
[2025-03-15] MEDS: ALPRAZolam 0.5 MG TAB PO ONE (09:47)
--- NOTE | 2025-03-15 09:54 | DVHPN2 ---
Progress Note - Dictate Date Seen: Mar 15, 2025 Medical Necessity Reason Pt with a Central, PICC or Fol: No Subjective Ms. Mcmahan is a 64 years old right-handed female with a history of diabetes, but otherwise healthy, she came to the [facility] on 03/11/2025 with a chief complaint of altered mental status/confusion. I have seen and examined the patient, I have talked to her nurse, she was alert and fully oriented, but the story obtained from her is not exactly as yesterday He claimed she remember everything, clean in the dog bowl, the pool, her m entally she was normal until she answer her son's fine, and she claimed her memory loss/confusion was 15 minutes or less Again she denies similar problems previously. Based on what she reported today, the patient might have partial complex seizure, less likely partial seizure Urinalysis, 03/11/2025: Unremarkable UDS, 04/10/2025: Negative CBC, 03/12/2025: Unremarkable BMP 03/12/25: Unremarkable HGB A1c, 03/11/2025: 6.3 Troponin one high sensitivity, 03/11/2025: 81, 410, 737, 883, 898, 143 TG/HDL/LDL/HDL, 03/11/2025: 217/181/114/40 TSH, 03/11/2025: 1.74 Echocardiogram, 03/11/2025: LV EF IS 65% NORMAL VALVES NO EFFUSION NORMAL RV FUNCTION.SIZE AND PRESSURE Carotid Doppler, 03/12/2025: 1. No evidence of hemodynamically significant stenosis within the bilateral carotid arterial systems. 2. Antegrade flow within bilateral vertebral arteries CT head, 03/11/2025: No acute intracranial abnormality. MRI head, 03/12/2025: No evidence of acute intracranial abnormalities. vital signs Vital Sign Date Time Temp Pulse Resp B/P (MAP) Pulse Ox O2 Delivery O2 Flow Rate FiO2 03/15/25 09:00 98.1 64 19 108/63 (78) 98 98.1 03/14/25 20:00 Room Air* 0 21 Total Intake and Output 03/14/25 03/14/25 03/15/25 15:00 23:00 07:00 Intake Total 240 ml 800 ml 700 ml Balance 240 ml 800 ml 700 ml medications Current Medications Medications Dose Ordered Sig/[place]ubna Route Start Time Stop Time Status Last Admin Dose Admin Diagnostic Test (Pha) 1 strip ACHS 03/11/25 17:00 03/15/25 06:34 1 STRIP Insulin Human Regular ACHS SC 03/11/25 17:00 03/15/25 06:44 2 UNITS Dextrose 50 ml UD PRN IV 03/11/25 12:45 Aspirin 81 mg DAILY PO 03/11/25 12:48 03/13/25 08:26 81 MG Atorvastatin Calcium 40 mg HS PO 03/11/25 22:00 03/13/25 22:18 40 MG Acetaminophen 650 mg Q6HP PRN PO 03/11/25 12:45 03/12/25 11:29 650 MG Ondansetron HCl 4 mg Q4HP PRN IV 03/11/25 12:45 Nitroglycerin 0.4 mg Q5MINP PRN SL 03/11/25 12:45 Morphine Sulfate 2 mg Q30M PRN IV 03/11/25 12:45 Hydrochlorothiazide 25 mg DAILY PO 03/12/25 10:00 03/13/25 08:25 25 MG Alprazolam 1 mg TID PO 03/15/25 14:00 objective General: the patient is well developed and nourished. No acute distress. MENTAL STATUS: Awake and alert. Oriented to person, place, time and general circumstances. Able to give personal history. SPEECH, LANGUAGE, HIGHER CORTICAL FUNCTION: no aphasia or dysathria. CRANIAL NERVES: Pupils are equal, round and reactive. EOMs full and conjugate.No nystagmus. Facial sensation intact in all three divisions bilaterally. Mandibular strength intact. Facial muscles symmetrical and strength intact. SENSATION: Sensation to touch and pinprick is normal. MOTOR: Normal tone in the upper and lower extremity. Normal muscle bulk. No fasciculations. No abnormal movements or posturing. Muscle strength of the major groups in the extremities is 5/5. REFLEXES: Deep tendon reflexes are symmetrical. No pathological reflexes. CEREBELLAR/COORDINATION: Finger to nose and heel to [place] are normal bilaterally. GAIT/STATION: deferred. laboratory and microbiology Laboratory Tests 03/12/25 05:06 Test 03/12/25 05:06 Range/Units Serum Glucose 120 H 74-106 mg/dL Problem List Altered mental status/confusion Partial complex seizure Transient global amnesia, less likely TIA/stroke, less likely Metabolic encephalopathy, less likely Heart attack Assessment/Plan Monitoring Supportive treatment Telemetry EEG Aspirin 81 mg daily Lipitor 40 mg daily Cardiology on case More recommendation on clinical course This medical document was created using an electronic medical record system with [employer]ixers dictation system. Although this document has been carefully reviewed, there may still be some phonetic and typographical errors. These areas are purely typographical due to imperfections of the software programs, and do not reflect any compromise in the patient's medical care Prognosis poor Plan discussed with: Patient, Other Critical Care Time(min): 35 BRENDA LARES MD Mar 15, 2025 09:54
[2025-03-15] MEDS: ALPRAZolam 0.5 MG TAB PO SCH (14:00)
--- NOTE | 2025-03-15 23:53 | DVHPN2 ---
Progress Note - Dictate Date Seen: Mar 15, 2025 Medical Necessity Reason Pt with a Central, PICC or Fol: No Subjective Patient was seen and evaluated in follow up. Patient is complaining of chest pressure. Patient is underwent stress test which was positive for ischemia Telemetry reviewed. vital signs Vital Sign Date Time Temp Pulse Resp B/P (MAP) Pulse Ox O2 Delivery O2 Flow Rate FiO2 03/15/25 21:00 97.8 79 18 110/70 (83) 93 97.8 03/15/25 08:00 Room Air* 0 21 Total Intake and Output 03/14/25 03/14/25 03/15/25 15:00 23:00 07:00 Intake Total 240 ml 800 ml 700 ml Balance 240 ml 800 ml 700 ml medications Current Medications Medications Dose Ordered Sig/Lubna Route Start Time Stop Time Status Last Admin Dose Admin Diagnostic Test (Pha) 1 strip ACHS 03/11/25 17:00 03/15/25 21:51 1 STRIP Insulin Human Regular ACHS SC 03/11/25 17:00 03/15/25 22:04 2 UNITS Dextrose 50 ml UD PRN IV 03/11/25 12:45 Aspirin 81 mg DAILY PO 03/11/25 12:48 03/13/25 08:26 81 MG Atorvastatin Calcium 40 mg HS PO 03/11/25 22:00 03/13/25 22:18 40 MG Acetaminophen 650 mg Q6HP PRN PO 03/11/25 12:45 03/12/25 11:29 650 MG Ondansetron HCl 4 mg Q4HP PRN IV 03/11/25 12:45 Nitroglycerin 0.4 mg Q5MINP PRN SL 03/11/25 12:45 Morphine Sulfate 2 mg Q30M PRN IV 03/11/25 12:45 Hydrochlorothiazide 25 mg DAILY PO 03/12/25 10:00 03/13/25 08:25 25 MG Alprazolam 1 mg TID PO 03/15/25 14:00 03/15/25 21:51 1 MG objective GENERAL: Alert and oriented x 3. No acute distress. EYES: PERRL, EOMI. Anicteric. HENT: Moist mucous membranes. LUNGS: Clear to auscultation bilaterally. CARDIOVASCULAR: Regular rate and rhythm. ABDOMEN: Soft, nontender and nondistended. EXTREMITIES: No edema. NEUROLOGIC: No focal neurological deficits. SKIN: Warm, dry. laboratory and microbiology Laboratory Tests 03/12/25 05:06 Test 03/12/25 05:06 Range/Units Serum Glucose 120 H 74-106 mg/dL Problem List NSTEMI. Hypertensive emergency, newly diagnosed. Rule out structural heart disease. Dyslipidemia, newly diagnosed. Rule out CVA. Prediabetes. Assessment/Plan Continued all current supportive medical care. Aspirin, Lipitor. Morphine and [place] for pain management. Nitro SL. Additional plan as per the hospital course. Plan discussed with: Patient JOSHUA CHOWDARY MD Mar 15, 2025 23:53
[2025-03-16] VITALS (9 sets, daily range): BP systolic 105–133; BP diastolic 67–80; PULSE 64–88; RESP 18; TEMP 97.8–98.7; O2SAT 92–97
--- NOTE | 2025-03-16 08:12 | DVHPN2 ---
Reviewed: Care Plan, H&P, Labs, Medications, Previous Orders, Radiology Changes from previous H/P or p: No Changes Cardiovascular: Other (Chest pressure) Objective Vitals Vital Signs Date Time Temp Pulse Resp B/P (MAP) Pulse Ox O2 Delivery O2 Flow Rate FiO2 03/16/25 05:00 97.8 65 18 128/80 (96) 94 97.8 03/15/25 20:00 Room Air* 0 21 Intake/Output Intake and Output 03/16/25 07:00 Intake Total 1600 ml Balance 1600 ml Intake Oral 1600 ml # Voids 12 # Bowel Movements 2 Medications Current Medications Medications Dose Ordered Sig/Lubna Route Start Time Stop Time Status Last Admin Dose Admin Diagnostic Test (Pha) 1 strip ACHS 03/11/25 17:00 03/16/25 06:11 1 STRIP Insulin Human Regular ACHS SC 03/11/25 17:00 03/15/25 22:04 2 UNITS Dextrose 50 ml UD PRN IV 03/11/25 12:45 Aspirin 81 mg DAILY PO 03/11/25 12:48 03/13/25 08:26 81 MG Atorvastatin Calcium 40 mg HS PO 03/11/25 22:00 03/13/25 22:18 40 MG Acetaminophen 650 mg Q6HP PRN PO 03/11/25 12:45 03/12/25 11:29 650 MG Ondansetron HCl 4 mg Q4HP PRN IV 03/11/25 12:45 Nitroglycerin 0.4 mg Q5MINP PRN SL 03/11/25 12:45 Morphine Sulfate 2 mg Q30M PRN IV 03/11/25 12:45 Hydrochlorothiazide 25 mg DAILY PO 03/12/25 10:00 03/13/25 08:25 25 MG Alprazolam 1 mg TID PO 03/15/25 14:00 03/15/25 21:51 1 MG Laboratory Results Laboratory Tests 03/12/25 05:06 Urinalysis Test 03/11/25 11:51 Urine Color Colorless (Yellow) Urine Clarity Clear (Clear) Urine pH 6.5 (5.0-9.0) Urine Specific [place] 1.005 (1.001-1.035) Urine Protein Negative (Negative) Urine Ketones Negative (Negative) Urine Blood Trace /uL (Negative) H Urine Nitrite Negative (Negative) Urine Bilirubin Negative (Negative) Urine Urobilinogen Normal mg/dL (Negative) Urine Leukocyte Esterase Negative /uL (Negative) Urine RBC 1 /hpf (0 - 4) Urine Microscopic WBC < 1 /HPF (0-5) Urine Squamous Epithelial Cells None seen /hpf (<5) Urine Bacteria None seen /hpf (None Seen) Urine Glucose Normal mg/dL (Normal) Labs and/or images reviewed: Labs reviewed by me, Image(s) reviewed by me Assessment/Plan Assessment/Plan NSTEMI with troponin of 900 Hypertensive emergency, newly diagnosed: Hydrochlorothiazide, cardiology consult by Dr. Sprague appreciated Rule out structural heart disease echo 65 % ejection fraction Dyslipidemia, newly diagnosed: Lipitor Rule out CVA: CT head negative, MRI brain negative, carotid ultrasound negative echo 65 % ejection consult for Neurology Dr. Milian appreciated, EEG pending Transient global amnesia per Dr Milian Prediabetes High Level of anxiety: Xanax 1 mg PO HS Cardiolite stress test positive shows inferior ischemia, we will wait for further plan by rn wellness Dr. Angelika Sprague EEG pending Plan discussed with: Patient My Orders Orders - CATRINA OLIVERA MD Procedure Category Date Status Time Alprazolam Tablet PHA 03/15/25 In Process (Xanax Tablet) 14:00 Communication Order ORDERS 03/16/25 Transmitted 08:02 Date of Service: Mar 16, 2025 Billing Provider: CATRINA OLIVERA MD Common Visit Codes: [id number] INP/OBS CARE(HIGH) CATRINA OLIVERA MD Mar 16, 2025 08:12
[2025-03-16] MEDS: ALPRAZolam 0.5 MG TAB PO SCH (21:30)
--- NOTE | 2025-03-16 23:09 | DVHPN2 ---
Progress Note - Dictate Date Seen: Mar 16, 2025 Medical Necessity Reason Pt with a Central, PICC or Fol: No Subjective Patient was seen and evaluated in follow up. Patient is complaining of chest pressure. Patient also reports anxiety. EEG is pending. BS are WNL. Patient recommended for cardiac cath. Tentatively planned for 03/17/25. Telemetry reviewed. vital signs Vital Sign Date Time Temp Pulse Resp B/P (MAP) Pulse Ox O2 Delivery O2 Flow Rate FiO2 03/16/25 08:00 69 18 96 Room Air* 0 21 03/16/25 05:00 97.8 128/80 (96) 97.8 Total Intake and Output 03/15/25 03/15/25 03/16/25 15:00 23:00 07:00 Intake Total 1200 ml 400 ml Balance 1200 ml 400 ml medications Current Medications Medications Dose Ordered Sig/Lubna Route Start Time Stop Time Status Last Admin Dose Admin Diagnostic Test (Pha) 1 strip ACHS 03/11/25 17:00 03/16/25 12:23 1 STRIP Insulin Human Regular ACHS SC 03/11/25 17:00 03/15/25 22:04 2 UNITS Dextrose 50 ml UD PRN IV 03/11/25 12:45 Aspirin 81 mg DAILY PO 03/11/25 12:48 03/13/25 08:26 81 MG Atorvastatin Calcium 40 mg HS PO 03/11/25 22:00 03/13/25 22:18 40 MG Acetaminophen 650 mg Q6HP PRN PO 03/11/25 12:45 03/12/25 11:29 650 MG Ondansetron HCl 4 mg Q4HP PRN IV 03/11/25 12:45 Nitroglycerin 0.4 mg Q5MINP PRN SL 03/11/25 12:45 Morphine Sulfate 2 mg Q30M PRN IV 03/11/25 12:45 Hydrochlorothiazide 25 mg DAILY PO 03/12/25 10:00 03/13/25 08:25 25 MG Alprazolam 1 mg HS PO 03/16/25 22:00 objective GENERAL: Alert and oriented x 3. No acute distress. EYES: PERRL, EOMI. Anicteric. HENT: Moist mucous membranes. LUNGS: Clear to auscultation bilaterally. CARDIOVASCULAR: Regular rate and rhythm. ABDOMEN: Soft, nontender and nondistended. EXTREMITIES: No edema. NEUROLOGIC: No focal neurological deficits. SKIN: Warm, dry. laboratory and microbiology Laboratory Tests 03/12/25 05:06 Test 03/12/25 05:06 Range/Units Serum Glucose 120 H 74-106 mg/dL Problem List NSTEMI. Hypertensive emergency, newly diagnosed. Rule out structural heart disease. Dyslipidemia, newly diagnosed. Rule out CVA. Prediabetes. Assessment/Plan Continued all current supportive medical care. Cardiac cath. Aspirin, Lipitor. Morphine and [place] for pain management. Nitro SL. Additional plan as per the hospital course. Dietary Evaluation Review Comments: CCHO-60g + Cardiac diet Expected Outcomes/Goals: controlled blood glucose, Plan discussed with: Patient JOSHUA CHOWDARY MD Mar 16, 2025 12:49
[2025-03-17] VITALS (11 sets, daily range): BP systolic 98–128; BP diastolic 59–76; PULSE 64–77; RESP 13–19; TEMP 97.6–98.6; O2SAT 90–99
[2025-03-17 06:38] LABS: INR 1.04 (0.9-1.15); Partial Thromboplastin Time 27.4 SEC (24.5-34.5)
[2025-03-17 06:42] LABS: Alanine Aminotransferase 17 U/L (7-40); Alkaline Phosphatase 81 U/L (46-116); Anion Gap 7 (5-15); BUN/Creatinine Ratio 25.8 (10.0-20.0); Basophils # (auto) 0 10 ^3/uL (0-0.2); Basophils % (auto) 0.5 % (0.0-2.0); Carbon Dioxide 24 mmol/L (20-31); Eosinophils # (auto) 0.3 10 ^3/uL (0-0.8); Eosinophils % (auto) 4.1 % (0.0-7.0); Hematocrit 40.8 % (36.0-46.0); Hemoglobin 13.9 g/dL (12.2-16.2); Lymphocytes % (auto) 24.6 % (10.0-50.0); Mean Corpuscular Hemoglobin 30.9 pg (28.0-32.0); Mean Corpuscular Hgb Conc. 34.1 g/dL (32.0-36.0); Mean Corpuscular Volume 90.8 fL (80.0-100.0); Monocytes # (auto) 0.6 10 ^3/uL (0-1.3); Neutrophils # (auto) 5.2 10 ^3/uL (1.6-8.6); Neutrophils % (auto) 63.8 % (37.0-80.0); Nucleated Red Blood Cells % 0.1 %; Platelet Count (auto) 227 10^3/uL (140-450); Potassium 4.5 mmol/L (3.5-5.1); Red Blood Cells 4.49 10^6/uL (4.0-5.20); Red Cell Distribution Width 13.1 % (11.8-14.3); Sodium 141 mmol/L (136-145); Total Protein 6.8 g/dL (5.7-8.2); White Blood Cell 8.2 10^3/uL (4.4-10.8)
[2025-03-17 06:43] LABS: Albumin 4.3 g/dL (3.2-4.8); Aspartate Aminotransferase 13 U/L (13-40); Bilirubin, Total 0.4 mg/dL (0.2-1.0); Blood Urea Nitrogen 24 mg/dL (9-23); Chloride 110 mmol/L (98-107); Glucose 115 mg/dL (74-106)
--- NOTE | 2025-03-17 10:27 | DVHPN2 ---
Reviewed: Care Plan, H&P, Labs, Medications, Previous Orders, Radiology Changes from previous H/P or p: No Changes Cardiovascular: Other (Chest pressure) Objective Vitals Vital Signs Date Time Temp Pulse Resp B/P (MAP) Pulse Ox O2 Delivery O2 Flow Rate FiO2 03/17/25 08:48 97.6 64 18 128/70 (89) 96 97.6 03/16/25 20:00 Room Air* 0 21 Intake/Output Intake and Output 03/17/25 07:00 Intake Total 1800 ml Output Total 1400 ml Balance 400 ml Intake Oral 1800 ml Output Urine Total 1400 ml # Voids 1 Medications Current Medications Medications Dose Ordered Sig/Lubna Route Start Time Stop Time Status Last Admin Dose Admin Diagnostic Test (Pha) 1 strip ACHS 03/11/25 17:00 03/17/25 06:37 1 STRIP Insulin Human Regular ACHS SC 03/11/25 17:00 03/16/25 16:48 3 UNITS Dextrose 50 ml UD PRN IV 03/11/25 12:45 Aspirin 81 mg DAILY PO 03/11/25 12:48 03/13/25 08:26 81 MG Atorvastatin Calcium 40 mg HS PO 03/11/25 22:00 03/16/25 21:29 40 MG Acetaminophen 650 mg Q6HP PRN PO 03/11/25 12:45 03/12/25 11:29 650 MG Ondansetron HCl 4 mg Q4HP PRN IV 03/11/25 12:45 Nitroglycerin 0.4 mg Q5MINP PRN SL 03/11/25 12:45 Morphine Sulfate 2 mg Q30M PRN IV 03/11/25 12:45 Hydrochlorothiazide 25 mg DAILY PO 03/12/25 10:00 03/13/25 08:25 25 MG Alprazolam 1 mg HS PO 03/16/25 22:00 03/16/25 21:30 1 MG Laboratory Results Laboratory Tests 03/17/25 05:22 Chemistry Test 03/17/25 05:22 Albumin 4.3 g/dL (3.2-4.8) Calcium Level 10.0 mg/dL (8.7-10.4) Total Protein 6.8 g/dL (5.7-8.2) Coagulation Test 03/17/25 05:22 Prothrombin Time 11.0 sec (9.3-11.8) Prothrombin Time INR 1.04 (0.9-1.15) Activated Partial Thromboplast Time 27.4 SEC (24.5-34.5) LFT Test 03/17/25 05:22 Alanine Aminotransferase (ALT) 17 U/L (7-40) Alkaline Phosphatase 81 U/L (46-116) Aspartate Amino Transferase (AST) 13 U/L (13-40) Total Bilirubin 0.4 mg/dL (0.2-1.0) Urinalysis Test 03/11/25 11:51 Urine Color Colorless (Yellow) Urine Clarity Clear (Clear) Urine pH 6.5 (5.0-9.0) Urine Specific [place] 1.005 (1.001-1.035) Urine Protein Negative (Negative) Urine Ketones Negative (Negative) Urine Blood Trace /uL (Negative) H Urine Nitrite Negative (Negative) Urine Bilirubin Negative (Negative) Urine Urobilinogen Normal mg/dL (Negative) Urine Leukocyte Esterase Negative /uL (Negative) Urine RBC 1 /hpf (0 - 4) Urine Microscopic WBC < 1 /HPF (0-5) Urine Squamous Epithelial Cells None seen /hpf (<5) Urine Bacteria None seen /hpf (None Seen) Urine Glucose Normal mg/dL (Normal) Labs and/or images reviewed: Labs reviewed by me, Image(s) reviewed by me Assessment/Plan Assessment/Plan NSTEMI with troponin of 900 Hypertensive emergency, newly diagnosed: Hydrochlorothiazide, cardiology consult by Dr. Sprague appreciated Rule out structural heart disease echo 65 % ejection fraction Dyslipidemia, newly diagnosed: Lipitor Rule out CVA: CT head negative, MRI brain negative, carotid ultrasound negative echo 65 % ejection consult for Neurology Dr. Milian appreciated, EEG pending Transient global amnesia per Dr Milian Prediabetes High Level of anxiety: Xanax 1 mg PO HS Cardiolite stress test positive shows inferior ischemia, patient getting left heart catheterization by Dr. Sprague this afternoon EEG pending Plan discussed with: Patient Date of Service: March 17, 2025 Billing Provider: CATRINA OLIVERA MD Common Visit Codes: [id number] INP/OBS CARE(HIGH) CATRINA OLIVERA MD March 17, 2025 10:27
[2025-03-17] MEDS: IODIXANOL 320MG/ML 100ML BTL IV ONE (15:37)
[2025-03-17] MEDS: fentaNYL CITRATE 100 MCG/2 ML VL ONE (15:49)
[2025-03-17] MEDS: ANGIOMAX 250 MG VIAL IV ONE (15:49)
[2025-03-17] MEDS: MIDAZOLAM HCL 2MG/2ML 2ml VIAL (1mg/ml) ONE (15:50)
[2025-03-17] MEDS: SODIUM CHL 0.9% 0 ML ONE (15:50)
[2025-03-17] MEDS: ONDANSETRON HCL 4 MG/2 ML VIAL ONE (15:59)
[2025-03-17] MEDS: VERAPAMIL 2.5MG/ML INJ 2ML VIAL IV ONE ×2 (16:27→16:32)
[2025-03-17] MEDS: HEPARIN SODIUM (PORCINE) 5000 UNITS/ML 1ML VIAL ONE (16:28)
--- NOTE | 2025-03-17 18:24 | DVHOP ---
DATE OF SURGERY: 03/17/2025 Room: 291, bed 1. TECHNIQUES PERFORMED: * Ultrasound of the right radial artery.] * Management of conscious sedation. * Insertion of the 6-[place] arterial line in the right radial artery. * Left heart cath. * Left ventriculogram. * [place] selective left and right coronary artery angiography. ASSISTANTS: Assisted by Wilner Snider and Saadia, and rest of the staff. COMPLICATIONS: None. INDICATIONS: The patient has a non-ST elevation myocardial infarction, troponin went up to 898 and recover in a standard manner. DESCRIPTION OF PROCEDURE: Indications, risks, benefits, and alternatives all have been explained. The patient was brought to seed laboratory assistant. The right radial area thoroughly cleaned with soap and Betadine and lidocaine was given. Ultrasound was done. Artery was punctured. A 6-[place] arterial line has been placed in a standard manner. The patient was given cocktail of 100 mcg of nitroglycerin, 2.5 mg of verapamil, 2000 units of heparin was given, and line was flushed. Subsequently, the TIG catheter 5-[place] 4.0 was passed and a left coronary angiography was done in a different view. We were also able to do a right coronary angiography with the same catheter. With the help of the similar catheter, the left heart cath was done and the left ventriculogram was done in the right anterior oblique view, a total of 20 mL of dye. Post-LV gram, left ventriculogram performed with the help of pull-through technique. Aortic pressure was also performed. J-wire was passed. Pigtail catheter also had been discontinued. IMPRESSION: * Normal left main. * Left anterior descending artery has been widely open and is normal. * Circumflex and obtuse marginal artery is a moderate large artery, normal. * Right coronary artery is a large luminal artery, normal. * Ejection fraction is 65% and is normal. CONCLUSION: * No evidence of any occlusive coronary artery disease. * Ejection fraction is 65%. PLAN OF ACTION: Advised for conservative medical treatment. Follow up with primary care doctor. Joellen Sprague MD MP/OSCAR TID: [id number] RECEIPT: [id number]
[2025-03-17] MEDS: ALPRAZolam 0.5 MG TAB PO SCH (22:44)
--- NOTE | 2025-03-17 23:21 | DVHPN2 ---
Progress Note - Dictate Date Seen: March 17, 2025 Medical Necessity Reason Pt with a Central, PICC or Fol: No Subjective Patient was seen and evaluated in follow up. Patient is complaining of chest pressure. Patient underwent left heart cath, [place] selective left and right coronary artery angiography. There is no evidence of any occlusive coronary artery disease. Ejection fraction is 65%. Advised for conservative medical treatment. Follow up with primary care doctor. Telemetry reviewed. vital signs Vital Sign Date Time Temp Pulse Resp B/P (MAP) Pulse Ox O2 Delivery O2 Flow Rate FiO2 03/17/25 08:48 97.6 64 18 128/70 (89) 96 97.6 03/17/25 08:00 Room Air* 0 21 Total Intake and Output 03/16/25 03/16/25 03/17/25 15:00 23:00 07:00 Intake Total 1000 ml 800 ml Output Total 1400 ml Balance -400 ml 800 ml medications Current Medications Medications Dose Ordered Sig/[place]ub[place] Route Start Time Stop Time Status Last Admin Dose Admin Diagnostic Test (Pha) 1 strip ACHS 03/11/25 17:00 03/17/25 11:32 1 STRIP Insulin Human Regular ACHS SC 03/11/25 17:00 03/16/25 16:48 3 UNITS Dextrose 50 ml UD PRN IV 03/11/25 12:45 Aspirin 81 mg DAILY PO 03/11/25 12:48 03/13/25 08:26 81 MG Atorvastatin Calcium 40 mg HS PO 03/11/25 22:00 03/16/25 21:29 40 MG Acetaminophen 650 mg Q6HP PRN PO 03/11/25 12:45 03/12/25 11:29 650 MG Ondansetron HCl 4 mg Q4HP PRN IV 03/11/25 12:45 Nitroglycerin 0.4 mg Q5MINP PRN SL 03/11/25 12:45 Morphine Sulfate 2 mg Q30M PRN IV 03/11/25 12:45 Hydrochlorothiazide 25 mg DAILY PO 03/12/25 10:00 03/13/25 08:25 25 MG Alprazolam 1 mg HS PO 03/16/25 22:00 03/16/25 21:30 1 MG objective GENERAL: Alert and oriented x 3. No acute distress. EYES: PERRL, EOMI. Anicteric. HENT: Moist mucous membranes. LUNGS: Clear to auscultation bilaterally. CARDIOVASCULAR: Regular rate and rhythm. ABDOMEN: Soft, nontender and nondistended. EXTREMITIES: No edema. NEUROLOGIC: No focal neurological deficits. SKIN: Warm, dry. laboratory and microbiology Laboratory Tests 03/17/25 05:22 Test 03/17/25 05:22 Range/Units Serum Glucose 115 H 74-106 mg/dL Problem List NSTEMI. Hypertensive emergency, newly diagnosed. Rule out structural heart disease. Dyslipidemia, newly diagnosed. Rule out CVA. Prediabetes. Assessment/Plan Continued all current supportive medical care. Cardiac cath. Aspirin, Lipitor. Morphine and [place] for pain management. Nitro SL. Additional plan as per the hospital course. Dietary Evaluation Review Comments: CCHO-60g + Cardiac diet Expected Outcomes/Goals: controlled blood glucose, Plan discussed with: Patient JOSHUA CHOWDARY MD March 17, 2025 12:48
[2025-03-18] VITALS (9 sets, daily range): BP systolic 104–114; BP diastolic 64–76; PULSE 59–74; RESP 16–18; TEMP 36.4; O2SAT 92–98
--- NOTE | 2025-03-18 09:58 | DVHPN2 ---
Reviewed: Care Plan, H&P, Labs, Medications, Previous Orders, Radiology Changes from previous H/P or p: No Changes Cardiovascular: Other (Chest pressure) Objective Vitals Vital Signs Date Time Temp Pulse Resp B/P (MAP) Pulse Ox O2 Delivery O2 Flow Rate FiO2 03/18/25 08:30 97.6 73 16 104/67 (79) 93 97.6 03/18/25 08:00 Room Air* 0 21 Intake/Output Intake and Output 03/18/25 07:00 Intake Total 1120 ml Balance 1120 ml Intake Oral 1120 ml # Voids 5 # Bowel Movements 1 Medications Current Medications Medications Dose Ordered Sig/Lubna Route Start Time Stop Time Status Last Admin Dose Admin Diagnostic Test (Pha) 1 strip ACHS 03/11/25 17:00 03/18/25 05:56 1 STRIP Insulin Human Regular ACHS SC 03/11/25 17:00 03/18/25 05:55 2 UNITS Dextrose 50 ml UD PRN IV 03/11/25 12:45 Aspirin 81 mg DAILY PO 03/11/25 12:48 03/13/25 08:26 81 MG Atorvastatin Calcium 40 mg HS PO 03/11/25 22:00 03/17/25 22:00 40 MG Acetaminophen 650 mg Q6HP PRN PO 03/11/25 12:45 03/12/25 11:29 650 MG Ondansetron HCl 4 mg Q4HP PRN IV 03/11/25 12:45 Nitroglycerin 0.4 mg Q5MINP PRN SL 03/11/25 12:45 Morphine Sulfate 2 mg Q30M PRN IV 03/11/25 12:45 Hydrochlorothiazide 25 mg DAILY PO 03/12/25 10:00 03/13/25 08:25 25 MG Alprazolam 0.5 mg HS PO 03/17/25 22:00 03/17/25 22:44 0.5 MG Laboratory Results Laboratory Tests 03/17/25 05:22 Urinalysis Test 03/11/25 11:51 Urine Color Colorless (Yellow) Urine Clarity Clear (Clear) Urine pH 6.5 (5.0-9.0) Urine Specific [place] 1.005 (1.001-1.035) Urine Protein Negative (Negative) Urine Ketones Negative (Negative) Urine Blood Trace /uL (Negative) H Urine Nitrite Negative (Negative) Urine Bilirubin Negative (Negative) Urine Urobilinogen Normal mg/dL (Negative) Urine Leukocyte Esterase Negative /uL (Negative) Urine RBC 1 /hpf (0 - 4) Urine Microscopic WBC < 1 /HPF (0-5) Urine Squamous Epithelial Cells None seen /hpf (<5) Urine Bacteria None seen /hpf (None Seen) Urine Glucose Normal mg/dL (Normal) Labs and/or images reviewed: Labs reviewed by me, Image(s) reviewed by me Assessment/Plan Assessment/Plan NSTEMI with troponin of 900 Hypertensive emergency, newly diagnosed: Hydrochlorothiazide, cardiology consult by Dr. Sprague appreciated Rule out structural heart disease echo 65 % ejection fraction Dyslipidemia, newly diagnosed: Lipitor Rule out CVA: CT head negative, MRI brain negative, carotid ultrasound negative echo 65 % ejection consult for Neurology Dr. Milian appreciated, EEG pending Transient global amnesia per Dr Milian Prediabetes High Level of anxiety: Xanax 1 mg PO HS Cardiolite stress test positive shows inferior ischemia, left heart catheterization shows normal coronaries and Dr. Sprague advised conservative management and discharge the patient Discussed discharge plan with the patient and the son on the phone Plan discussed with: Patient My Orders Orders - CATRINA OLIVERA MD Procedure Category Date Status Time Communication Order ORDERS 03/17/25 Transmitted 10:27 Date of Service: March 18, 2025 Billing Provider: CATRINA OLIVERA MD Common Visit Codes: [id number] INP/OBS CARE(HIGH) CATRINA OLIVERA MD March 18, 2025 09:58
[2025-03-18] MEDS ORDERED: ASPI1TAB19 PO (10:00)
[2025-03-18] MEDS ORDERED: ATOR-507 PO (10:00)
[2025-03-18] MEDS ORDERED: ALPR1TAB2 PO (10:01)
--- NOTE | 2025-03-18 10:08 | DVHDS2 ---
Discharge Summary Date of Admission Mar 11, 2025 at 12:37 Date of Discharge: March 18, 2025 Admitting Diagnosis Confusion and possible facial droop Wounds: Left heart catheterization Labs/Diagnostic Data: Laboratory Results Test 03/18/25 05:48 03/17/25 05:22 03/13/25 12:01 03/12/25 05:06 POC Glucose 131 mg/dl (70-106) White Blood Count 8.2 10^3/uL (4.4-10.8) Red Blood Count 4.49 10^6/uL (4.0-5.20) Hemoglobin 13.9 g/dL (12.2-16.2) Hematocrit 40.8 % (36.0-46.0) Mean Corpuscular Volume 90.8 fL (80.0-100.0) Mean Corpuscular Hemoglobin 30.9 pg (28.0-32.0) Mean Corpuscular Hemoglobin Concent 34.1 g/dL (32.0-36.0) Red Cell Distribution Width 13.1 % (11.8-14.3) Platelet Count 227 10^3/uL (140-450) Mean Platelet Volume 8.6 fL (6.9-10.8) Neutrophils (%) (Auto) 63.8 % (37.0-80.0) Lymphocytes (%) (Auto) 24.6 % (10.0-50.0) Monocytes (%) (Auto) 7.0 % (0.0-12.0) Eosinophils (%) (Auto) 4.1 % (0.0-7.0) Basophils (%) (Auto) 0.5 % (0.0-2.0) Neutrophils # (Auto) 5.2 10 ^3/uL (1.6-8.6) Lymphocytes # (Auto) 2.0 10 ^3/uL (0.4-5.4) Monocytes # (Auto) 0.6 10 ^3/uL (0-1.3) Eosinophils # (Auto) 0.3 10 ^3/uL (0-0.8) Basophils # (Auto) 0 10 ^3/uL (0-0.2) Nucleated Red Blood Cells 0.1 % Prothrombin Time 11.0 sec (9.3-11.8) Prothrombin Time INR 1.04 (0.9-1.15) Activated Partial Thromboplast Time 27.4 SEC (24.5-34.5) Sodium Level 141 mmol/L (136-145) Potassium Level 4.5 mmol/L (3.5-5.1) Chloride Level 110 mmol/L (98-107) Carbon Dioxide Level 24 mmol/L (20-31) Anion Gap 7 (5-15) Blood Urea Nitrogen 24 mg/dL (9-23) Creatinine 0.93 mg/dL (0.550-1.02) Glomerular Filtration Rate Calc 68 mL/min (>90) BUN/Creatinine Ratio 25.8 (10.0-20.0) Serum Glucose 115 mg/dL (74-106) Calcium Level 10.0 mg/dL (8.7-10.4) Total Bilirubin 0.4 mg/dL (0.2-1.0) Aspartate Amino Transferase (AST) 13 U/L (13-40) Alanine Aminotransferase (ALT) 17 U/L (7-40) Alkaline Phosphatase 81 U/L (46-116) Total Protein 6.8 g/dL (5.7-8.2) Albumin 4.3 g/dL (3.2-4.8) Troponin I High Sensitivity 32 ng/L (</=34) Magnesium Level 2.2 mg/dL (1.6-2.6) Test 03/11/25 11:51 03/11/25 10:56 Urine Color Colorless (Yellow) Urine Clarity Clear (Clear) Urine pH 6.5 (5.0-9.0) Urine Specific [place] 1.005 (1.001-1.035) Urine Protein Negative (Negative) Urine Ketones Negative (Negative) Urine Blood Trace /uL (Negative) Urine Nitrite Negative (Negative) Urine Bilirubin Negative (Negative) Urine Urobilinogen Normal mg/dL (Negative) Urine Leukocyte Esterase Negative /uL (Negative) Urine RBC 1 /hpf (0 - 4) Urine Microscopic WBC < 1 /HPF (0-5) Urine Squamous Epithelial Cells None seen /hpf (<5) Urine Bacteria None seen /hpf (None Seen) Urine Glucose Normal mg/dL (Normal) Urine Opiates Screen Neg (NEGATIVE) Urine Fentanyl Screen Neg (NEGATIVE) Urine Barbiturates Screen Neg (NEGATIVE) Urine Phencyclidine Screen Neg (NEGATIVE) Urine Amphetamines Screen Neg (NEGATIVE) Urine Benzodiazepines Screen Neg (NEGATIVE) Urine Cocaine Screen Neg (NEGATIVE) Urine Cannabinoids Screen Neg (NEGATIVE) Hemoglobin A1c 6.3 % A1C (<5.7) Triglycerides Level 217 mg/dL (< 150) Cholesterol Level 181 mg/dL (< 200) LDL Cholesterol 114 mg/dL (< 100) HDL Cholesterol 40 mg/dL (40-59) Thyroid Stimulating Hormone (TSH) 1.74 uIU/mL (0.55-4.78) Other Laboratory Tests 03/17/25 05:22 Brief Hx & Hospital Course: 54-year-old female with history of hypertension admitted from the ER for confusion and possible facial droop troponin was almost 900. She denies any chest pain Cardiolite stress test showed possible inferior ischemia left heart catheterization by Dr. Sprague showed no coronary artery disease and ejection fraction 65 percent advised conservative management patient was placed on Lipitor for newly diagnosed hypercholesterolemia. Blood pressure 179 at the time of admission controlled by hydrochlorothiazide [address] head was negative MRI brain negative carotid ultrasound negative neurology consult by Dr. Milian who felt patient had possible transient global amnesia. Patient has higher level of anxiety placed on Xanax. Blood pressure controlled. Being discharged home. Prescription for aspirin Lipitor transmitted to the pharmacy. Discussed discharge plan with the patient and the son on the phone. Cleared for discharge by Dr. Sprague. at the time of discharge patient is ambulatory with stable vital signs. Consults/Reason for consult Neurology Dr. Milian Cardiology Dr. Sprague Operations or Procedures Left heart catheterization Echocardiogram Cardiolite stress test CT head MRI brain Condition at Discharge: Fair Final Diagnosis/Problems List NSTEMI with troponin of 900 Hypertensive emergency, newly diagnosed: Hydrochlorothiazide, cardiology consult by Dr. Sprague appreciated Rule out structural heart disease echo 65 % ejection fraction Dyslipidemia, newly diagnosed: Lipitor Rule out CVA: CT head negative, MRI brain negative, carotid ultrasound negative echo 65 % ejection consult for Neurology Dr. Milian appreciated, EEG pending Transient global amnesia per Dr Milian High Level of anxiety: Xanax 1 mg PO HS Cardiolite stress test positive shows inferior ischemia, left heart catheterization shows normal coronaries and Dr. Sprague advised conservative management and discharge the patient Discharge Disposition: Home Discharge Instruct/Medications Diet: Cardiac 2g Na,low cholest Activity: Light activity Follow Up/Referral: Follow up with the primary Dr in one week Follow up with the order checker packer processer Dr. Angelika Sprague in 10 days Use medications as prescribed Medications: Aspirin Lipitor Xanax Transmitted to pharmacy 39 (Time Taken for discharge summary 39 minutes) Discharge Statement: "Patient was advised to return to the ER or call 911 if any headaches, dizziness, shortness of breath, chest pain, abdominal pain, bleeding, fevers, or worsening of medical condition. Patient was counseled about treatment plan, medications, possible side effects, patientverbalized understanding. All questions were answered to the best of my ability. This discharge took greater then 30 minutes in planning, reviewing documentation, counseling the patient, and discussing with other team members." ASSESSMENT ASSESSMENT Hospital Course Improved Assessment NSTEMI with troponin of 900 Hypertensive emergency, newly diagnosed: Hydrochlorothiazide, cardiology consult by Dr. Sprague appreciated Rule out structural heart disease echo 65 % ejection fraction Dyslipidemia, newly diagnosed: Lipitor Rule out CVA: CT head negative, MRI brain negative, carotid ultrasound negative echo 65 % ejection consult for Neurology Dr. Milian appreciated, EEG pending Transient global amnesia per Dr Milian High Level of anxiety: Xanax 1 mg PO HS Cardiolite stress test positive shows inferior ischemia, left heart catheterization shows normal coronaries and Dr. Sprague advised conservative management and discharge the patient Date of Service: March 18, 2025 Billing Provider: CATRINA OLIVERA MD Common Visit Codes: [id number] DISCH DAY >30min CATRINA OLIVERA MD March 18, 2025 10:08
--- NOTE | 2025-03-18 18:34 | DVHPN2 ---
Progress Note - Dictate Date Seen: March 18, 2025 Medical Necessity Reason Pt with a Central, PICC or Fol: No Subjective Patient was seen and evaluated in follow up. Patient has no new complaints at this time. Patient denies any cardiac symptoms. Patient is cardiac stable for discharge. Telemetry reviewed. vital signs Vital Sign Date Time Temp Pulse Resp B/P (MAP) Pulse Ox O2 Delivery O2 Flow Rate FiO2 03/18/25 11:42 36.4 73 16 95 03/18/25 09:55 104/63 03/18/25 08:00 Room Air* 0 21 Total Intake and Output 03/17/25 03/17/25 03/18/25 15:00 23:00 07:00 Intake Total 320 ml 800 ml Balance 320 ml 800 ml medications Current Medications Medications Dose Ordered Sig/Lubna Route Start Time Stop Time Status Last Admin Dose Admin Diagnostic Test (Pha) 1 strip ACHS 03/11/25 17:00 03/18/25 05:56 1 STRIP Insulin Human Regular ACHS SC 03/11/25 17:00 03/18/25 05:55 2 UNITS Dextrose 50 ml UD PRN IV 03/11/25 12:45 Aspirin 81 mg DAILY PO 03/11/25 12:48 03/18/25 09:55 81 MG Atorvastatin Calcium 40 mg HS PO 03/11/25 22:00 03/17/25 22:00 40 MG Acetaminophen 650 mg Q6HP PRN PO 03/11/25 12:45 03/12/25 11:29 650 MG Ondansetron HCl 4 mg Q4HP PRN IV 03/11/25 12:45 Nitroglycerin 0.4 mg Q5MINP PRN SL 03/11/25 12:45 Morphine Sulfate 2 mg Q30M PRN IV 03/11/25 12:45 Hydrochlorothiazide 25 mg DAILY PO 03/12/25 10:00 03/18/25 09:55 25 MG Alprazolam 0.5 mg HS PO 03/17/25 22:00 03/17/25 22:44 0.5 MG objective GENERAL: Alert and oriented x 3. No acute distress. EYES: PERRL, EOMI. Anicteric. HENT: Moist mucous membranes. LUNGS: Clear to auscultation bilaterally. CARDIOVASCULAR: Regular rate and rhythm. ABDOMEN: Soft, nontender and nondistended. EXTREMITIES: No edema. NEUROLOGIC: No focal neurological deficits. SKIN: Warm, dry. laboratory and microbiology Laboratory Tests 03/17/25 05:22 Test 03/17/25 05:22 Range/Units Serum Glucose 115 H 74-106 mg/dL Problem List NSTEMI. Hypertensive emergency, newly diagnosed. Rule out structural heart disease. Dyslipidemia, newly diagnosed. Rule out CVA. Prediabetes. Assessment/Plan Continued all current supportive medical care. Cardiac cath. Aspirin, Lipitor. Morphine and [place] for pain management. Nitro SL. Additional plan as per the hospital course. Dietary Evaluation Review Comments: CCHO-60g + Cardiac diet Expected Outcomes/Goals: controlled blood glucose, Plan discussed with: Patient JOSHUA CHOWDARY MD March 18, 2025 12:33
[2025-03-19] VITALS (7 sets, daily range): BP systolic 102–123; BP diastolic 58–74; PULSE 68–82; RESP 16–17; TEMP 97.8–98.2; O2SAT 93–98
--- NOTE | 2025-03-19 00:07 | DVHEEG2 ---
Neurology EEG Procedural Note Procedural Note EXAM DATE: 03/16/2025 REFERRING DOCTOR: Dr. Lares TECHNIQUE: Eighteen channels of EEG, 2 channels of EOG, and 1 channel of EKG were recorded using the International 10/20 system. CLINICAL DATA: The patient was referred for an EEG evaluation for the evidence of seizure disorder. MEDICATIONS: See the chart BACKGROUND ACTIVITY: While the patient was awake, the background activity consisted of well regulated 10 Hz rhythmic waveforms, symmetrically distributed over both posterior quadrants and was reactive to eye opening. ACTIVATION: Hyperventilation: Not done Photic Stimulation: Not done Sleep: Not seen IMPRESSION: This is a normal EEG. No focal, lateralized, or epileptiform features are noted. If clinically indicated to rule out a seizure disorder, recommend repeat EEG with sleep deprivation. The EKG channel showed a regular heart rate of 78/[place] [address]. BRENDA LARES MD March 19, 2025 00:07
--- NOTE | 2025-03-19 10:25 | DVHPN2 ---
Reviewed: Care Plan, H&P, Labs, Medications, Previous Orders, Radiology Changes from previous H/P or p: No Changes Cardiovascular: Other (Chest pressure) Objective Vitals Vital Signs Date Time Temp Pulse Resp B/P (MAP) Pulse Ox O2 Delivery O2 Flow Rate FiO2 03/19/25 09:56 117/66 03/19/25 09:00 97.8 68 16 95 97.8 03/19/25 08:00 Room Air* 0 21 Intake/Output Intake and Output 03/19/25 07:00 Intake Total 1138 ml Balance 1138 ml Intake Oral 1138 ml # Voids 10 # Bowel Movements 2 Medications Current Medications Medications Dose Ordered Sig/Lubna Route Start Time Stop Time Status Last Admin Dose Admin Diagnostic Test (Pha) 1 strip ACHS 03/11/25 17:00 03/19/25 06:24 1 STRIP Insulin Human Regular ACHS SC 03/11/25 17:00 03/18/25 21:46 2 UNITS Dextrose 50 ml UD PRN IV 03/11/25 12:45 Aspirin 81 mg DAILY PO 03/11/25 12:48 03/19/25 09:54 81 MG Atorvastatin Calcium 40 mg HS PO 03/11/25 22:00 03/18/25 21:46 40 MG Acetaminophen 650 mg Q6HP PRN PO 03/11/25 12:45 03/12/25 11:29 650 MG Ondansetron HCl 4 mg Q4HP PRN IV 03/11/25 12:45 Nitroglycerin 0.4 mg Q5MINP PRN SL 03/11/25 12:45 Morphine Sulfate 2 mg Q30M PRN IV 03/11/25 12:45 Hydrochlorothiazide 25 mg DAILY PO 03/12/25 10:00 03/18/25 09:55 25 MG Alprazolam 0.5 mg HS PO 03/17/25 22:00 03/18/25 21:46 0.5 MG Laboratory Results Laboratory Tests 03/17/25 05:22 Urinalysis Test 03/11/25 11:51 Urine Color Colorless (Yellow) Urine Clarity Clear (Clear) Urine pH 6.5 (5.0-9.0) Urine Specific [place] 1.005 (1.001-1.035) Urine Protein Negative (Negative) Urine Ketones Negative (Negative) Urine Blood Trace /uL (Negative) H Urine Nitrite Negative (Negative) Urine Bilirubin Negative (Negative) Urine Urobilinogen Normal mg/dL (Negative) Urine Leukocyte Esterase Negative /uL (Negative) Urine RBC 1 /hpf (0 - 4) Urine Microscopic WBC < 1 /HPF (0-5) Urine Squamous Epithelial Cells None seen /hpf (<5) Urine Bacteria None seen /hpf (None Seen) Urine Glucose Normal mg/dL (Normal) Labs and/or images reviewed: Labs reviewed by me, Image(s) reviewed by me Assessment/Plan Assessment/Plan NSTEMI with troponin of 900 Hypertensive emergency, newly diagnosed: Hydrochlorothiazide, cardiology consult by Dr. Sprague appreciated Rule out structural heart disease echo 65 % ejection fraction Dyslipidemia, newly diagnosed: Lipitor Rule out CVA: CT head negative, MRI brain negative, carotid ultrasound negative echo 65 % ejection consult for Neurology Dr. Milian appreciated, EEG pending Transient global amnesia per Dr Milian Prediabetes High Level of anxiety: Xanax 1 mg PO HS Cardiolite stress test positive shows inferior ischemia, left heart catheterization shows normal coronaries and Dr. Sprague advised conservative management and discharge the patient Discussed discharge plan with the patient and the son on the phone EEG negative Patient was discharged on 03/18/2025 Patient refused to go and appealed to the Medicare and decision by Medicare is pending Plan discussed with: Patient My Orders Orders - CATRINA OLIVERA MD Procedure Category Date Status Time * Dock Superintendent CONS 03/18/25 Transmitted Consult Date of Service: March 19, 2025 Billing Provider: CATRINA OLIVERA MD Common Visit Codes: [id number] INP/OBS CARE(HIGH) CATRINA OLIVERA MD March 19, 2025 10:25
--- NOTE | 2025-03-19 15:33 | DVHPN2 ---
Progress Note - Dictate Date Seen: March 19, 2025 Medical Necessity Reason Pt with a Central, PICC or Fol: No Subjective Patient was seen and evaluated in follow up. Patient c/o chest pressure. Patient refused discharge yesterday and appealed to the Medicare and decision by Medicare is pending. BS are WNL. Telemetry reviewed. vital signs Vital Sign Date Time Temp Pulse Resp B/P (MAP) Pulse Ox O2 Delivery O2 Flow Rate FiO2 03/19/25 09:56 117/66 03/19/25 09:00 97.8 68 16 95 97.8 03/19/25 08:00 Room Air* 0 21 Total Intake and Output 03/18/25 03/18/25 03/19/25 15:00 23:00 07:00 Intake Total 238 ml 500 ml 400 ml Balance 238 ml 500 ml 400 ml medications Current Medications Medications Dose Ordered Sig/Lubna Route Start Time Stop Time Status Last Admin Dose Admin Diagnostic Test (Pha) 1 strip ACHS 03/11/25 17:00 03/19/25 11:30 1 STRIP Insulin Human Regular ACHS SC 03/11/25 17:00 03/19/25 11:30 2 UNITS Dextrose 50 ml UD PRN IV 03/11/25 12:45 Aspirin 81 mg DAILY PO 03/11/25 12:48 03/19/25 09:54 81 MG Atorvastatin Calcium 40 mg HS PO 03/11/25 22:00 03/18/25 21:46 40 MG Acetaminophen 650 mg Q6HP PRN PO 03/11/25 12:45 03/12/25 11:29 650 MG Ondansetron HCl 4 mg Q4HP PRN IV 03/11/25 12:45 Nitroglycerin 0.4 mg Q5MINP PRN SL 03/11/25 12:45 Morphine Sulfate 2 mg Q30M PRN IV 03/11/25 12:45 Hydrochlorothiazide 25 mg DAILY PO 03/12/25 10:00 03/18/25 09:55 25 MG Alprazolam 0.5 mg HS PO 03/17/25 22:00 03/18/25 21:46 0.5 MG objective GENERAL: Alert and oriented x 3. No acute distress. EYES: PERRL, EOMI. Anicteric. HENT: Moist mucous membranes. LUNGS: Clear to auscultation bilaterally. CARDIOVASCULAR: Regular rate and rhythm. ABDOMEN: Soft, nontender and nondistended. EXTREMITIES: No edema. NEUROLOGIC: No focal neurological deficits. SKIN: Warm, dry. laboratory and microbiology Laboratory Tests 03/17/25 05:22 Test 03/17/25 05:22 Range/Units Serum Glucose 115 H 74-106 mg/dL Problem List NSTEMI. Hypertensive emergency, newly diagnosed. Rule out structural heart disease. Dyslipidemia, newly diagnosed. Rule out CVA. Prediabetes. Assessment/Plan Continued all current supportive medical care. Aspirin, Lipitor. Morphine and Cylinder for pain management. Nitro SL. Additional plan as per the hospital course. Dietary Evaluation Review Comments: CCHO-60g + Cardiac diet Expected Outcomes/Goals: controlled blood glucose, Plan discussed with: Patient JOSHUA CHOWDARY MD March 19, 2025 12:22
[2025-03-20 01:00] VITALS: BP 101/62; PULSE 65; RESP 18; TEMP 97.6; O2SAT 96
[2025-03-20 05:00] VITALS: BP 116/76; PULSE 73; RESP 18; TEMP 98; O2SAT 96
[2025-03-20 08:00] VITALS: PULSE 70; RESP 17; O2SAT 95
[2025-03-20 09:08] VITALS: BP 117/71; PULSE 68; RESP 17; TEMP 97.8; O2SAT 96
--- NOTE | 2025-03-20 12:02 | DVHPN2 ---
Reviewed: Care Plan, H&P, Labs, Medications, Previous Orders, Radiology Changes from previous H/P or p: No Changes Cardiovascular: Other (Chest pressure) Objective Vitals Vital Signs Date Time Temp Pulse Resp B/P (MAP) Pulse Ox O2 Delivery O2 Flow Rate FiO2 03/20/25 09:08 97.8 68 17 117/71 (86) 96 97.8 03/19/25 19:30 Room Air* 0 21 Intake/Output Intake and Output 03/20/25 07:00 Intake Total 1775 ml Balance 1775 ml Intake Oral 1775 ml # Voids 14 # Bowel Movements 2 Medications Current Medications Medications Dose Ordered Sig/Lubna Route Start Time Stop Time Status Last Admin Dose Admin Diagnostic Test (Pha) 1 strip ACHS 03/11/25 17:00 03/20/25 07:21 1 STRIP Insulin Human Regular ACHS SC 03/11/25 17:00 03/19/25 22:21 2 UNITS Dextrose 50 ml UD PRN IV 03/11/25 12:45 Aspirin 81 mg DAILY PO 03/11/25 12:48 03/20/25 10:35 81 MG Atorvastatin Calcium 40 mg HS PO 03/11/25 22:00 03/19/25 22:12 40 MG Acetaminophen 650 mg Q6HP PRN PO 03/11/25 12:45 03/12/25 11:29 650 MG Ondansetron HCl 4 mg Q4HP PRN IV 03/11/25 12:45 Nitroglycerin 0.4 mg Q5MINP PRN SL 03/11/25 12:45 Morphine Sulfate 2 mg Q30M PRN IV 03/11/25 12:45 Hydrochlorothiazide 25 mg DAILY PO 03/12/25 10:00 03/18/25 09:55 25 MG Alprazolam 0.5 mg HS PO 03/17/25 22:00 03/19/25 22:12 0.5 MG Laboratory Results Laboratory Tests 03/17/25 05:22 Urinalysis Test 03/11/25 11:51 Urine Color Colorless (Yellow) Urine Clarity Clear (Clear) Urine pH 6.5 (5.0-9.0) Urine Specific [place] 1.005 (1.001-1.035) Urine Protein Negative (Negative) Urine Ketones Negative (Negative) Urine Blood Trace /uL (Negative) H Urine Nitrite Negative (Negative) Urine Bilirubin Negative (Negative) Urine Urobilinogen Normal mg/dL (Negative) Urine Leukocyte Esterase Negative /uL (Negative) Urine RBC 1 /hpf (0 - 4) Urine Microscopic WBC < 1 /HPF (0-5) Urine Squamous Epithelial Cells None seen /hpf (<5) Urine Bacteria None seen /hpf (None Seen) Urine Glucose Normal mg/dL (Normal) Labs and/or images reviewed: Labs reviewed by me, Image(s) reviewed by me Assessment/Plan Assessment/Plan NSTEMI with troponin of 900 Hypertensive emergency, newly diagnosed: Hydrochlorothiazide, cardiology consult by Dr. Sprague appreciated Rule out structural heart disease echo 65 % ejection fraction Dyslipidemia, newly diagnosed: Lipitor Rule out CVA: CT head negative, MRI brain negative, carotid ultrasound negative echo 65 % ejection consult for Neurology Dr. Milian appreciated, EEG negative Transient global amnesia per Dr Milian Prediabetes High Level of anxiety: Xanax 1 mg PO HS Cardiolite stress test positive shows inferior ischemia, left heart catheterization shows normal coronaries and Dr. Sprague advised conservative management and discharge the patient Discussed discharge plan with the patient and the son on the phone Patient was discharged on 03/18/2025 Patient refused to go and appealed to the Medicare and decision by Medicare is pending Per home health care social worker Ana, Medicare denied patient's appeal and she has spoke to the patient Examined the patient today with the RN Malathi at bedside and patient is willing to go home. Will set up an appointment with Dr. Angelika Sprague with in the next one week Plan discussed with: Patient Date of Service: March 20, 2025 Billing Provider: CATRINA OLIVERA MD Common Visit Codes: [id number] INP/OBS CARE(HIGH) CATRINA OLIVERA MD March 20, 2025 12:02
[2025-03-20 13:30] VITALS: BP 151/84; PULSE 74; RESP 17; TEMP 97.5; O2SAT 95
[2025-03-20 17:09] VITALS: BP 127/73; PULSE 90; RESP 18; TEMP 97.5; O2SAT 98
--- NOTE | 2025-03-20 21:56 | DVHPN2 ---
Progress Note - Dictate Date Seen: March 20, 2025 Medical Necessity Reason Pt with a Central, PICC or Fol: No Subjective Patient was seen and evaluated in follow up. Patient has no new complaints at this time. Patient denies any cardiac symptoms. Patient is cardiac stable for discharge. Telemetry reviewed. vital signs Vital Sign Date Time Temp Pulse Resp B/P (MAP) Pulse Ox O2 Delivery O2 Flow Rate FiO2 03/20/25 13:30 97.5 74 17 151/84 (106) 95 97.5 03/19/25 19:30 Room Air* 0 21 Total Intake and Output 03/19/25 03/19/25 03/20/25 15:00 23:00 07:00 Intake Total 1175 ml 600 ml Balance 1175 ml 600 ml medications Current Medications Medications Dose Ordered Sig/[place] Route Start Time Stop Time Status Last Admin Dose Admin Diagnostic Test (Pha) 1 strip ACHS 03/11/25 17:00 03/20/25 11:30 1 STRIP Insulin Human Regular ACHS SC 03/11/25 17:00 03/20/25 12:50 2 UNITS Dextrose 50 ml UD PRN IV 03/11/25 12:45 Aspirin 81 mg DAILY PO 03/11/25 12:48 03/20/25 10:35 81 MG Atorvastatin Calcium 40 mg HS PO 03/11/25 22:00 03/19/25 22:12 40 MG Acetaminophen 650 mg Q6HP PRN PO 03/11/25 12:45 03/12/25 11:29 650 MG Ondansetron HCl 4 mg Q4HP PRN IV 03/11/25 12:45 Nitroglycerin 0.4 mg Q5MINP PRN SL 03/11/25 12:45 Morphine Sulfate 2 mg Q30M PRN IV 03/11/25 12:45 Hydrochlorothiazide 25 mg DAILY PO 03/12/25 10:00 03/18/25 09:55 25 MG Alprazolam 0.5 mg HS PO 03/17/25 22:00 03/19/25 22:12 0.5 MG objective GENERAL: Alert and oriented x 3. No acute distress. EYES: PERRL, EOMI. Anicteric. HENT: Moist mucous membranes. LUNGS: Clear to auscultation bilaterally. CARDIOVASCULAR: Regular rate and rhythm. ABDOMEN: Soft, nontender and nondistended. EXTREMITIES: No edema. NEUROLOGIC: No focal neurological deficits. SKIN: Warm, dry. laboratory and microbiology Laboratory Tests 03/17/25 05:22 Test 03/17/25 05:22 Range/Units Serum Glucose 115 H 74-106 mg/dL Problem List NSTEMI. Hypertensive emergency, newly diagnosed. Rule out structural heart disease. Dyslipidemia, newly diagnosed. Rule out CVA. Prediabetes. Assessment/Plan Continued all current supportive medical care. Aspirin, Lipitor. Morphine and [place] for pain management. Nitro SL. Additional plan as per the hospital course. Dietary Evaluation Review Comments: CCHO-60g + Cardiac diet Expected Outcomes/Goals: controlled blood glucose, Plan discussed with: Patient JOSHUA CHOWDARY MD March 20, 2025 13:56
== END 2025-03-20 17:25 | disposition home or self-care (01) | DRG 70 ==
LOC: ER 09:41 → OVERFLOW 12:37 → TELE-CENTR 14:45 → TELE-WESTW 03-17 05:59
PROVIDERS: ADMIT Family Medicine; ATTEND Family Medicine
PROC: B211YZZ Fluoroscopy of Multiple Coronary Arteries using Other Contrast (ICD-10-PCS; principal; 2025-03-17)
PROC: B215YZZ Fluoroscopy of Left Heart using Other Contrast (ICD-10-PCS; 2025-03-17)
PROC: 4A023N7 Measurement of Cardiac Sampling and Pressure, Left Heart, Percutaneous Approach (ICD-10-PCS; 2025-03-17)
PROC: B34HZZZ Ultrasonography of Right Upper Extremity Arteries (ICD-10-PCS; 2025-03-17)
PROC: 03HY32Z Insertion of Monitoring Device into Upper Artery, Percutaneous Approach (ICD-10-PCS; 2025-03-17)
DX: G45.4 Transient global amnesia (principal); I21.4 Non-ST elevation (NSTEMI) myocardial infarction; I16.1 Hypertensive emergency; E11.9 Type 2 diabetes mellitus without complications; E78.5 Hyperlipidemia, unspecified; F41.9 Anxiety disorder, unspecified; E78.00 Pure hypercholesterolemia, unspecified; Z90.49 Acquired absence of other specified parts of digestive tract; Z88.0 Allergy status to penicillin; Z82.0 Family history of epilepsy and other diseases of the nervous system; Z82.49 Family history of ischemic heart disease and other diseases of the circulatory system; Z83.3 Family history of diabetes mellitus; Z79.82 Long term (current) use of aspirin; Z79.899 Other long term (current) drug therapy; I11.9 Hypertensive heart disease without heart failure
CPT/HCPCS: 36415; 70450; 70551; 71045; 78452; 80048; 80053; 80061; 80307; 81001; 82962; 83036; 83735; 84443; 84484; 85025; 85610; 85730; 86850; 86900; 86901; 93005; 93017; 93306; 93458; 93886; 95819; 99152; 99291; G0378; J1815; J2250; J2405; Q9967